=== PATIENT | male | born 1965 | race Caucasian/White ===

== ENCOUNTER → 2020-04-13 12:28 | Outpatient (CLI) | payer OTHER, SELFPAY ==
[2020-04-04 09:58] VITALS: BMI 33.7
--- NOTE | 2020-04-13 13:36 | SP.MBSS_ITS ---
Modified Barium Swallow - Patient Information Study Date: 04/13/20 Study Time: 13:00 Diagnosis: dysphagia, unspecified (R13.12) Referring Physician: Kwaku Mckinley MS CCC-GLASS SCIENCE ENGINEER Reason for Referral: painful and effortful swallowing Medical History: 02/21/2020: Patient was evaluated by ENT for pharyngeal dysphasia and sent to ENT for evaluation 03/04/2020: CT neck with contrast was performed. There is suspicious masslike enhancement along the left aspect of the base of tongue measuring 2.4 x 2 cm. There is a large amount of streak artifact from the patient's dental amalgam and this could be involving the left palatine tonsil as well. There is a large amount of accessory parotid tissue superficial to the masseter muscle but no parotid masses identified. There is a suspicious appearing solid 2 x 1.8 cm left level 2B level 3 junction lymph node. No other convincing adenopathy is identified. 10 pound weight loss. Difficulty 03/15/2020: Patient underwent triple endoscopy. Biopsy of the base of tongue demonstrated nonkeratinizing squamous cell carcinoma with p16 being diffusely and strongly positive. 03/20/2020: PET scan was performed. There is a 2.3 x 2.8 x 3.4 cm focus of intense activity noted in the left base of tongue and adjacent anterolateral left oropharyngeal region. There is a left level 2 lymph node measuring 0.7 x 1 cm with an SUV of 5.2 and an enlarged lymph node in the level 2B/3 region demonstrates an SUV of 14.8. No other adenopathy or evidence of distant metastasis is identified. 03/27/2020: Patient was seen by medical oncology and plan was to discuss the tumor board and formulate a plan between chemoradiation or potentially surgery and radiation with or without chemotherapy. 03/27/2020: Patient was discussed at multidisciplinary tumor board. Recommendation was for dual modality treatment in the form of chemotherapy and radiation. Given the extent of the primary lesion he was not felt to be good candidate for transoral resection. Current Diet Ordered: soft/thin Dentition: Natural Teeth Mental Status: WNL Respiratory Status: Oxygenating on Room Air - Study Findings Consistencies: Thin Liquid, [place] Thick Liquid, Pudding, Cookie - Penetration-Aspiration Scale Penetration-Aspiration Scale: OBJECTIVE ASSESSMENT OF SWALLOW FUNCTION (QUANTITATIVE ? PER TRIAL): PENETRATION / ASPIRATION SCALE (TORRES): 1 = does not enter airway 2 = enters airway/above vocal folds/ejected 3 = enters airway/above vocal folds/not ejected 4 = enters airway/contacts vocal folds/ejected 5 = enters airway/contacts vocal folds/not ejected 6 = enters airway/below vocal folds/ejected 7 = enters airway/below vocal folds/not ejected despite effort 8 = enters airway/below vocal folds/no effort - Penetration-Aspiration Scale Score Thin Liquid via teaspoon Result: 1= does not enter airway Thin Liquid via small single sip from cup Result: 1= does not enter airway Thin Liquid via large single sip from cup Result: 4= enters airway/contacts vocal folds/ejected Comment: scant amount Thin Liquid via sequential sips from cup Result: 1= does not enter airway [place] Thick Liquid via small single sip from cup Result: 1= does not enter airway [place] Thick Liquid via large single sip from cup Result: 1= does not enter airway Pudding Result: 1= does not enter airway Cookie Result: 1= does not enter airway Thin Liquid via sequential sips from straw Result: 2= enter airway/above vocal folds/ejected - Oral Phase Labial Seal: No Labial Escape Tongue Control During Bolus Hold: Cohesive bolus between tongue to palatal seal Bolus Preparation/Mastication: Timely and efficient chewing and mashing Bolus Transport/Lingual Motion: Brisk tongue motion Oral Residue: Trace residue lining oral structures - Pharyngeal Phase Initiation of Pharyngeal Swallow: Bolus head at posterior angle of ramus at first hyoid excursion Soft Palate Elevation: No bolus between soft palate and pharyngeal wall Laryngeal Elevation: Partial superior movement thyroid cart/partial apprx aryt- epig petiole Anterior Hyoid Excursion: Partial anterior movement Epiglottic Movement: Complete inversion Laryngeal Vestibule Closure at Height of Swallow: Incomplete; narrow column of air/contrast in laryngeal vestibule Pharyngeal Stripping Wave: Present - complete Pharyngoesophageal Segment Opening: Complete distension and complete duration; no obstruction of flow Tongue Base Retraction: Narrow column of contrast between tongue base & post. pharyngeal wall Pharyngeal Residue: Complete pharyngeal clearance - Diagnosis/Impression Diagnosis: mild oropharyngeal dysphagia (R13.12) Impression: The patient reports effortful and painful swallowing and has been following a soft diet on his own for several weeks. The patient describes effortful swallowing even with liquids although denies any coughing or choking on food/drink.The patient trialed thin liquid barium via large single sip from cup with scant penetration to the vocal cords which was quickly ejected. Patient also had scant penetration with thin liquids via sequential sips via straw also ejected. No other penetration or aspiration found at this date and time. The patient tolerated pudding and solid texture trials with increased effort in swallowing Radha Doone shortbread cookie. The patient able to describe in great detail types of textures that work best for him to help with the pain of sw allowing. It is recommended the patient continue with a mechanical soft texture (moist and minced)/thin liquid diet. The patient was encouraged to add sauce or gravy to food when able to help with dry/hard items. It is recommended that the patient follow up with a speech-language pathologist following radiation/chemotherapy treatment to assess diet tolerance and make changes to diet and recommended compensatory strategies as needed. - Recommendations Diet: Mechanical Soft Textures, Thin Liquids Compensatory Strategies: Small Bites, Small Sips, Slow Rate, Alternate bites/solids and sips/liquids, Sitting upright Recommend Repeat Modified Barium Swallow: TBD Need for Skilled Speech Therapy Services: Yes Recommended Referrals: ENT Consult Education Completed: 1. Described result of evaluation., 2. Pt understands evaluation & agrees with goals and treatment plan. - Status Active ST Patient: Active - Contact Information [facility] Speech Therapy:: Cindy Darling MA CCC-GLASS SCIENCE ENGINEER [email or web address] [phone]
== END ==
PROVIDERS: PCP Family Medicine
DX: C01 Malignant neoplasm of base of tongue (principal)
CPT/HCPCS: 74230; 92611

== ENCOUNTER 2020-05-30 12:29 | Inpatient (IN) | payer OTHER, SELFPAY ==
[2020-04-04 09:58] VITALS: BMI 33.7
[2020-05-22 08:32] VITALS: BMI 29.9
[2020-05-30] VITALS (15 sets, daily range): BP systolic 97–127; BP diastolic 63–76; PULSE 78–97; RESP 15–92; TEMP 37.2–38.6; O2SAT 95–98; BMI 30.7; BMI 30.5
--- NOTE | 2020-05-30 12:55 | ED.VISSUMM ---
- ER Visit Summary Date of Service: 05/30/20 Chief Complaint: [Fever] History of Present Illness: The patient is a 54 M [presents to the emergency department with complaint of a fever that was noted today. Patient was given IV fluids at the infusion center where he is being seen and treated for tongue cancer. While getting IV fluids he noted some chills and a temperature screen noted that he had an elevated temperature of 100.8. Patient currently being treated for tongue cancer with chemotherapy. Patient's last chemo was 2 weeks ago. Patient also receiving radiation therapy. Patient has a port in his right chest but he has had no issues with it. Patient has minimal cough which she chronically has related to his cancer and radiation therapy. He denies any COVID-19 exposures. He denies urinary symptoms. Patient has been noted to be neutropenic as he had blood work done this morning. Patient also history of rheumatoid arthritis and sleep apnea.] Physical Examination: [HEENT-PERRLA, EOMI. Cranial nerves II through XII grossly intact. TMs clear. Mucous membranes moist. No adenopathy. Cardiovascular-regular rate and rhythm without murmur or ectopy. Patient has a port in his right chest that is nontender with no evidence of erythema or or signs of infection. Lungs-clear to auscultation, chest wall stable without crepitus or subcu emphysema Abdomen-normoactive bowel sounds, soft, nontender, no rebound or rigidity, no peritoneal signs. Skin exam-no rashes noted. Extremities-intact ?4, normal range of motion, normal pulses, atraumatic] Test Results: [CBC with differential showed a white count of 0.5 with an ANC of 0.3. Chemistries unremarkable. Urinalysis normal. Lactate was normal at 0.5. COVID-19 test was negative. Chest x-ray showed nothing acute.] Emergency Department Course and Treatment: [Blood cultures have been ordered prior to arrival in the emergency department. Patient was started empirically on cefepime 2 g IV.] Treatment Plan: [Admit] Disposition: [Admit] Impression: Neutropenic fever-etiology uncertain [] This note was generated with [employer] dictation software. It may contain incorrect words, spelling, and punctuation that were not noted in review of the chart prior to signing ED Disposition - Plan for ED Patient: Referrals: Luis Alberto Boo MD [Primary Care Provider] -
--- NOTE | 2020-05-30 13:25 | RAD_ITS ---
STUDY: X-RAY CHEST REASON FOR EXAM: Male, 54 years old. Fever, low platelets TECHNIQUE: Single frontal view of the chest. COMPARISON: None. FINDINGS: Indwelling catheter tip is in the cavoatrial junction. Cardiac silhouette unremarkable. Pulmonary vascularity unremarkable. Aorta unremarkable. Minimal left costophrenic angle opacity. Upper abdomen unremarkable. Osseous structures intact. No pneumothorax. RAD/Chest 1 View (Portable) IMPRESSION: Minimal opacity at the left base may represent atelectasis and small effusion. Pneumonia should be excluded clinically. Electronically Signed: Dawit Edwards, at 16:16 EDT Tel , Service support ,
[2020-05-30] MEDS: 0.9% Normal Saline 1,000 ML 150 ML IV (13:28)
[2020-05-30 14:01] LABS: AST(SGOT) 8 U/L (15-37); Alanine Aminotransfer ALT/SGPT 18 U/L (16-61); Albumin, Serum 3.1 g/dL (3.2-5.0); Alkaline Phosphatase 47 U/L (45-117); Anion Gap 5 (5-15); BUN 17 mg/dL (7-18); BUN/Creat Ratio 21.7 RATIO (10-20); Calcium,Total 8.4 mg/dL (8.5-10.1); Chloride 107 mmol/L (98-107); Creatinine, Serum 0.78 mg/dL (0.70-1.30); EST Glomerular Filtration Rate 110 mL/min (>60); Est Glom Filt Rate - Afr Amer 133 mL/min (>60); Globulin 3.2 g/dL (2.2-4.2); Glucose 94 mg/dL (74-106); Potassium 4.2 mmol/L (3.5-5.1); Protein, Total 6.3 g/dL (6.4-8.2); Sodium Level 139 mmol/L (136-145)
[2020-05-30 14:06] LABS: Lactic Acid 0.5 mmol/L (0.4-1.9)
[2020-05-30 15:17] LABS: Bacteria 0 SEEN /hpf (None Seen); Mucous, Urine 0 SEEN /hpf (<or=2+); Red Blood Cells-Urine 0 SEEN /hpf (0-5); Squamous Epithelial Cells - UA 0 SEEN /hpf (0-5); White Blood Cells 0 SEEN /hpf (0-5)
[2020-05-30 15:19] LABS: Color, Urine Yellow (Yellow); Glucose, Dipstick Normal (Normal); Ketone-Dipstick Negative (Negative); Leukocyte Esterase-Dipstick Negative /ul (Negative); Nitrite-Dipstick Negative (Negative); Occult Blood-Urine Negative /ul (Negative); Protein-Dipstick Negative (Negative); Specific Gravity, Urine 1.015 (1.002-1.030); Urine Bilirubin Dipstick Negative (Negative); Urine Clarity Clear (Clear); Urine Urobilinogen Normal (Normal)
--- NOTE | 2020-05-30 16:24 | NURSING ---
CALLED [facility] JANE ABOUT PATIENT. FARRAH, BED COORDINATOR, TOOK INFO. SOMEONE WILL CALL BACK TO FOLLOW UP.
--- NOTE | 2020-05-30 16:35 | NURSING ---
DR NINO IN ER. PATIENT CONCERNED ABOUT [facility] DR NINO WAITING ON THEM TO CALL BACK BEFORE ADMITTING PATIENT
--- NOTE | 2020-05-30 16:54 | NURSING ---
CALLED [facility]YAH JANE, TALKED TO MONIQUE IN BED COODINATOR. PATIENT CAN BE ADMITTED HERE . T
[2020-05-30] MEDS: Acetaminophen 500 MG Tablet 1000 MG PO (16:55)
--- NOTE | 2020-05-30 16:57 | NURSING ---
[address] NEURTROPENIA ASHELFAH
--- NOTE | 2020-05-30 16:58 | PCM.HP.STD ---
Problem List (1) Febrile neutropenia Status: Acute (2) Depression Status: Chronic (3) Hypertension Status: Chronic (4) Tongue cancer Status: Chronic (5) Regional lymph node metastasis present Status: Chronic History of Present Illness Date of Admission: 05/30/20 Chief Complaint: Fever. The patient is a 54 year old M with past medical history as mentioned above presented to the emergency room because of fever. Today, patient came to the infusion center for IV fluids as he has been treated for tongue cancer and he is on PEG tube feedings and he was noted to have fever with chills. Reportedly, his temperature was 100.8 Fahrenheit at the infusion center which is started after IV fluid was started. Patient complained of fever, associated with mild chills and rigors, felt better after received IV fluids and he denied any other associated symptoms. He denied cough or sputum production. He reported chronic sore throat secondary to an cancer but nothing unusual. He denied abdominal pain, nausea or vomiting. He denied constipation or diarrhea. He denied urinary symptoms. He denied recent travel or sick contacts. He denied exposure to COVID-19. 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 He had a history of hypertension which has been under control with lisinopril. He has history of depression and he has been on Celexa and BuSpar. In the emergency department, patient had spikes of fever, other vital signs were stable. Routine blood work was remarkable for severe leukopenia, thrombocytopenia, anemia and absolute neutrophil count of 300. BMP was unremarkable as well as LFTs. Urinalysis revealed no evidence of acute infection. COVID-19 PCR came back negative. Chest x-ray revealed minimal left pleural effusion, no obvious infiltrate. He is being admitted for febrile neutropenia without obvious source of infection, thrombocytopenia and anemia. 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 Rheumatoid arthritis M06.9 Sleep apnea G47.30 HTN (hypertension) I10 Allergies tramadol Allergy (Intermediate, Verified 05/30/20 12:31) Hives Home Medications: Ambulatory Orders Medication Instructions Recorded Cholecalciferol (VIT D3) [Vitamin 1,000 unit PO DAILY 09/23/15 D] Citalopram [Celexa] 20 mg PO DAILY 09/23/15 Pantoprazole Sodium [Protonix] 20 mg PO BID 09/23/15 busPIRone [Buspar] 20 mg PO TID 09/23/15 Lisinopril [Zestril] 20 mg PO DAILY 04/04/20 Magic Mouth Wash 15 ml PO Q6H PRN PRN #300 ml 04/04/20 Modafinil [Provigil] 200 mg PO DAILY PRN PRN 04/04/20 Lidocaine/Prilocaine 1 applicatio TP DAILY PRN PRN 30 04/26/20 [Lidocaine-Prilocaine Cream] Days #1 tube Ondansetron [Ondansetron Odt] 8 mg PO Q8H PRN PRN 10 Days #30 05/10/20 tab.rapdis Oxycodone HCl 5 ml PO 4X/DAY PRN PRN #400 05/24/20 solution Fluconazole 200 mg PO DAILY 05/30/20 Gabapentin [Neurontin] 900 mg PO TID 05/30/20 Lactose-Reduced Food/Fiber 250 ml PO Q2H 05/30/20 [Isosource 1.5 Braden Liquid] Surgical History: Surgical History (Last Reviewed 05/30/20 @ 17:[address] Gilma Mason MD) H/O hernia repair Z98.890, Z87.19 GROIN X 2 Surgical History: herniorrhaphy Psychiatric History: Depression Lives: Spouse/ Significant Other Smoking Status: Never smoker Alcohol: None Drugs: None - *Family History Maternal Family History: Family History (Last Reviewed 05/30/20 @ 17:[address] Gilma Mason MD) Mother Diabetes Paternal Family History: Family History (Last Reviewed 05/30/20 @ 17:[address] Gilma Mason MD) Mother Diabetes History Items: No pertinent history Review of Systems Constitutional: Reports: Chills, Fever. Denies: Anorexia, Malaise, Weakness, Fatigue Eyes: Denies: Blurred vision, Double vision, Drainage, Redness HEENT: Denies: Difficulty Hearing, Dysphasia, Ear Pain, Eye Pain, Nasal Congestion Cardiovascular: Denies: Chest Pain, Chest Pressure, Edema, Heaviness, Light Headedness, Palpitations, Syncope Respiratory: Denies: Cough, Hemoptysis, Pleuritic Pain, Shortness of Breath, Sputum production, Wheezing Gastrointestinal: Denies: Abdominal Pain, Constipation, Diarrhea, Nausea, Vomiting Genitourinary: Denies: Dysuria, Frequency, Hematuria Musculoskeletal: Denies: Arm Pain, Back Pain, Foot Pain Skin: Denies: Dryness, Rash Neurological: Denies: Balance problems, Blurred vision, Double vision, Change in Speech, Slurred speech, Confusion, Headaches, Incoordination Psychiatric: Reports: Depression. Denies: Anxiety Endocrine: Denies: Change in Body Habitus, Polydipsia, Polyuria VTE Information - Inpt Only VTE Present on Admission: No VTE Mechan Device Prophylaxis: SCD's VTE Pharm Prophylaxis ordered?: No Patient Problems: Active and Suspected Problems (Last Reviewed 05/29/20 @ 08:41 by Kerri Hale RN) Febrile neutropenia (Acute) - Physical Exam Vitals/I&O's: Vital Signs Temp Pulse Resp BP Pulse Ox 101 F H 87 16 118/70 97 05/30/20 16:24 05/30/20 16:24 05/30/20 16:24 05/30/20 16:24 05/30/20 16:24 Oxygen Delivery Method Room Air Weight: 196 lb 3.382 oz Body Mass Index (BMI) 30.7 Intake and Output for Last 24 Hours 05/28/20 05/29/20 05/30/20 23:59 23:59 23:59 Intake Total 100 / 100 Balance 100 / 100 General: Alert, Oriented x3, Cooperative, No apparent distress HEENT: Atraumatic, PERRLA, EOMI, Normocephalic Oral: Moist Mucosa, No Gingival or Mucosal Lesions/ Ulcerations Neck: Supple, No JVD, Negative Carotid Bruits, Trachea Midline, Thyroid Normal Size and Texture Lungs: No rhonchi, No wheeze, Diminished, Rales, - - Decreased breath sounds at the left base with faint crackles. Cardiovascular: Regular rate, Regular Rhythm, Normal S1, Normal S2, PMI Normal Abdomen: Bowel Sounds Present, Soft, Non Tender, Non-Distended, No Hepato-splenomegaly, - - PEG tube in place. Extremities: No clubbing, No cyanosis, No edema Skin: No rashes, No breakdown Lymphatic: No Cervical, Supraclavicular, or Inguinal Adenopathy Neurological: Cranial nerves II-XII grossly intact, Motor Exam 5/5 strength throughout Psych/Mental Status: Normal Affect, Appropriate, Alert and oriented to time, place, person, mood and affect Laboratory Results 05/30/20 13:20: Sodium 139, Potassium 4.2, Chloride 107, Carbon Dioxide 27.0, Anion Gap 5, BUN 17, Creatinine 0.78, Estim Creat Clear Calc 102.40, Est GFR (MDRD) Af Amer 133, Est GFR (MDRD) Non-Af 110, BUN/Creatinine Ratio 21.7 H, Glucose 94, Calcium 8.4 L, Total Bilirubin 0.40, AST 8 L, ALT 18, Alkaline Phosphatase 47, Total Protein 6.3 L, Albumin 3.1 L, Globulin 3.2, Albumin/Globulin Ratio 1.0 05/30/20 13:20: Lactic Acid 0.5 05/30/20 13:25: COVID-19 (LEIGHA) Not Detected 05/30/20 14:58: Urine Color Yellow, Urine Clarity Clear, Urine pH 8.0, Ur Specific [place] 1.015, Urine Protein Negative, Urine Glucose (UA) Normal, Urine Ketones Negative, Urine Occult Blood Negative, Urine Nitrite Negative, Urine Bilirubin Negative, Urine Urobilinogen Normal, Ur Leukocyte Esterase Negative, Urine RBC 0 SEEN, Urine WBC 0 SEEN, Ur Squamous Epith Cells 0 SEEN, Urine Bacteria 0 SEEN, Urine Mucus 0 SEEN Clinical Impression(s) from Imaging Studies Chest X-Ray 05/30/20 13:25 IMPRESSION: Minimal opacity at the left base may represent atelectasis and small effusion. Pneumonia should be excluded clinically. Electronically Signed: Dawit Edwards, at 16:16 EDT Tel , Service support , Current Medications Sodium Chloride () 1,000 mls @ 150 mls/hr IV .Q6H40M [facility]EN Last Admin: 10/27/20 13:28 Dose: 150 mls/hr Documented by: Assessment/Plan All Active Problems (Last Reviewed 05/29/20 @ 08:41 by Kerri Hale RN) Febrile neutropenia (Acute) Mucositis due to antineoplastic therapy (Acute) This is a 54 years old male patient presented to the emergency room because of fever, found to have severe neutropenia and he is being admitted for febrile neutropenia without evidence of acute infection. #1 febrile neutropenia: Without obvious source of infection. Chest x-ray revealed minimal left pleural effusion. Patient denied any cough or sputum production. He does have crackles on the left base auscultation. UA reviewed, unremarkable. COVID-19 PCR was negative. Vital signs are stable, no evidence of sepsis or severe sepsis. Absolute neutrophil count is 300. Plan: Admit to [facility] floor, telemetry, IV fluids, Tylenol as needed, Zofran as needed, blood culture, start IV cefepime, neutropenic precautions, start subcu Granix daily, continue fluconazole that he has been on, will do CT scan chest without contrast to rule out pneumonia, repeat CBC and BMP tomorrow morning, PT OT evaluation and treatment. #2 pancytopenia: Secondary to chemotherapy. Patient is leukopenic, neutropenic and thrombocytopenic as well as anemic. Currently, no active bleeding. Platelet count is 35,000. Hemoglobin is 9.1 g/dL. Plan: Granix daily, repeat CBC tomorrow morning. 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 He follows up with Dr. Landers as outpatient. #4 hypertension: Blood pressure stable, continue lisinopril. #5 depression: Stable, continue Celexa and BuSpar. #6 DVT prophylaxis: SCDs, no chemical prophylaxis because of severe thrombocytopenia. This note was generated with [employer] dictation software. It may contain incorrect words, spelling, and punctuation that were not noted in checking the note before signing. Inpatient E&M: 76453 Init Hosp L3
--- NOTE | 2020-05-30 17:33 | CT_ITS ---
STUDY: CT CHEST WITHOUT CONTRAST REASON FOR EXAM: Male, 54 years old. Fever, left pleural effusion, neutropenia, tongue cancer, Port. RADIATION DOSAGE (If Supplied By Facility): CTDIvol = ( 17.40 ) mGy, DLP = ( 573.92 ) mGycm TECHNIQUE: Transaxial imaging was performed without the administration of intravenous contrast material. Individualized dose optimization techniques were used for this CT. COMPARISON: None. FINDINGS: There are bilateral lower lobe with trace or atelectasis. Small calcified granuloma in left lower lobe. There is no demonstrated pleural abnormality. Normal heart and pericardium. Normal mediastinum. Tiny calcified left hilar node. Normal unenhanced pulmonary arteries. Normal aorta arch and descending thoracic aorta. Thoracic spine demonstrates degenerative changes.. PEG tube noted with tip in stomach.. CT/Chest without Contrast IMPRESSION: Bibasilar atelectasis or infiltrates. Old granulomatous disease on the left. Electronically Signed: Chad Chun MD at 19:16 EDT , Service support ,
[2020-05-30 18:16] LABS: International Normalized Ratio 1.1; Prothrombin Time (Protime)PT. 13.2 SECONDS (11.7-14.9)
--- NOTE | 2020-05-30 18:19 | NURSING ---
NIYAH AMAYA, CALLED TO FOLLOW UP ON PATIENT. WANTED TO MAKE SURE HE WAS ADMITTED. HE WILL FOLLOWUP LATER
[2020-05-30] MEDS: TBO-FILGRASTIM 300 MCG/0.5 ML ML SC (18:33)
[2020-05-30] MEDS: busPIRone 5 MG Tablet 20 MG GT (21:41)
[2020-05-30] MEDS: Lansoprazole 15 MG Capsule.DR GT (21:41)
[2020-05-30] MEDS: 0.9% Normal Saline 1,000 ML 75 ML IV (21:49)
[2020-05-30] MEDS: oxyCODONE Soln 5 MG/0.25 ML PO.SYRINGE GT (23:45)
[2020-05-31] VITALS (11 sets, daily range): BP systolic 109–122; BP diastolic 68–74; PULSE 67–106; RESP 16–18; TEMP 36.6–37.2; O2SAT 93–96; BMI 30.5
[2020-05-31 00:20] LABS: Bedside Glucose 103 mg/dL (70-110)
[2020-05-31] MEDS: Acetaminophen 650 MG/20 ML UDC GT ×3 (01:34→16:14)
[2020-05-31 06:20] LABS: Absolute Lymphocyte Count 0.11 X10^3/uL (0.83-4.51); Absolute Neutrophil Count 0.4 X10^3/uL (2.0-7.7); Eosinophil# 0.01 X10^3/uL; Eosinophils% 1.4 % (0-5); Hemoglobin 9.3 g/dL (13.0-16.5); Lymphocyte # 0.11 X10^3/ul (4.0); Lymphocyte % 15.5 % (19-41); Mean Corp Hgb Conc 32.1 g/dL (32-36); Mean Corpuscular Hgb 29.8 pg (27.0-32.0); Mean Corpuscular Volume 92.9 fL (80-94); Monocyte# 0.14 X10^3/uL; Monocyte% 19.7 % (0-10); NRBC Flagged by Analyzer 0 % (0-5); Neutrophil # 0.44 X10^3/uL (2.7-7.7); POSITIVE COUNT YES; POSITIVE DIFFERENTIAL YES; POSITIVE MORPHOLOGY YES; RBC Distribution Width CV 14.9 % (11.6-14.6); RBC Distribution Width SD 46.6 fl (35.1-43.9); Red Blood Count 3.12 M/mm3 (4.6-6.2)
[2020-05-31 06:26] LABS: White Blood Count 0.7 K/mm3 (4.4-11.0)
[2020-05-31 06:27] LABS: Differential Indicated SCAN CRITERIA MET
[2020-05-31 06:28] LABS: Platelet Count 32 K/mm3 (150-450)
[2020-05-31] MEDS: busPIRone 5 MG Tablet 20 MG GT ×3 (06:31→21:09)
[2020-05-31] MEDS: Jevity 1.5. 1,000 ML Bottle 250 ML GT ×3 (06:31→13:37)
[2020-05-31] MEDS: oxyCODONE Soln 5 MG/0.25 ML PO.SYRINGE GT ×2 (06:32→20:10)
[2020-05-31 06:43] LABS: Anion Gap 5 (5-15); BUN 14 mg/dL (7-18); BUN/Creat Ratio 18.4 RATIO (10-20); Calcium,Total 8.4 mg/dL (8.5-10.1); Chloride 105 mmol/L (98-107); Creatinine, Serum 0.76 mg/dL (0.70-1.30); EST Glomerular Filtration Rate 114 mL/min (>60); Est Glom Filt Rate - Afr Amer 138 mL/min (>60); Estimated Creatinine Clearance 105.09 ml/min; Glucose 88 mg/dL (74-106); Sodium Level 138 mmol/L (136-145)
[2020-05-31 06:44] LABS: Differential Comment SCANNED
[2020-05-31 06:47] LABS: Platelet Estimate MKD DEC (ADEQ)
--- NOTE | 2020-05-31 07:05 | PCM.PN.HOSP ---
Patient Problems: Active and Suspected Problems (Last Reviewed 05/29/20 @ 08:41 by Kerri Hale RN) Febrile neutropenia (Acute) Reason for Visit: Follow-up on febrile neutropenia Subjective: Patient was seen and examined. He denied any fever or chills or SOB. He complains of abdominal discomfort around his PEG tube. There is no redness but increased exudates underneath the PEG tube stump. Objective: Physical exam: General: Alert, Oriented x3, Cooperative, No apparent distress HEENT: Atraumatic, PERRLA, EOMI, Normocephalic Oral: Moist Mucosa, No Gingival or Mucosal Lesions/ Ulcerations Neck: Supple, No JVD, Negative Carotid Bruits, Trachea Midline, Thyroid Normal Size and Texture Lungs: CTA Cardiovascular: Regular rate, Regular Rhythm, Normal S1, Normal S2, PMI Normal Abdomen: Bowel Sounds Present, Soft, Non Tender, Non-Distended, No Hepato-splenomegaly, - - PEG tube in place. Extremities: No edema Skin: No rashes, No breakdown Lymphatic: No Cervical, Supraclavicular, or Inguinal Adenopathy Neurological: Cranial nerves II-XII grossly intact, Motor Exam 5/5 strength throughout Psych/Mental Status: Normal Affect, Appropriate, Alert and oriented to time, place, person, mood and affect Vitals/I&O's: Vital Signs Temp Pulse Resp BP Pulse Ox 98.9 F 67 18 127/70 H 97 05/30/20 23:33 05/31/20 04:13 05/30/20 23:33 05/30/20 23:33 05/30/20 23:33 Oxygen Delivery Method Room Air Weight: 88.541 kg Body Mass Index (BMI) 30.5 Intake and Output for Last 24 Hours 05/29/20 05/30/20 05/31/20 23:59 23:59 23:59 Intake Total 1255 / 1255 778.75 / 778.75 Balance 1255 / 1255 778.75 / 778.75 Laboratory Results 05/30/20 13:20: Sodium 139, Potassium 4.2, Chloride 107, Carbon Dioxide 27.0, Anion Gap 5, BUN 17, Creatinine 0.78, Estim Creat Clear Calc 102.40, Est GFR (MDRD) Af Amer 133, Est GFR (MDRD) Non-Af 110, BUN/Creatinine Ratio 21.7 H, Glucose 94, Calcium 8.4 L, Total Bilirubin 0.40, AST 8 L, ALT 18, Alkaline Phosphatase 47, Total Protein 6.3 L, Albumin 3.1 L, Globulin 3.2, Albumin/Globulin Ratio 1.0 05/30/20 13:20: Lactic Acid 0.5 05/30/20 13:25: COVID-19 (LEIGHA) Not Detected 05/30/20 14:58: Urine Color Yellow, Urine Clarity Clear, Urine pH 8.0, Ur Specific [place] 1.015, Urine Protein Negative, Urine Glucose (UA) Normal, Urine Ketones Negative, Urine Occult Blood Negative, Urine Nitrite Negative, Urine Bilirubin Negative, Urine Urobilinogen Normal, Ur Leukocyte Esterase Negative, Urine RBC 0 SEEN, Urine WBC 0 SEEN, Ur Squamous Epith Cells 0 SEEN, Urine Bacteria 0 SEEN, Urine Mucus 0 SEEN 05/30/20 17:56: PT 13.2, INR 1.1 05/30/20 23:37: POC Glucose 103 05/31/20 06:00: WBC 0.7 L*, RBC 3.12 L, Hgb 9.3 L, Hct 29.0 L, MCV 92.9, MCH 29.8, MCHC 32.1, RDW Std Deviation 46.6 H, RDW Coeff of Steve 14.9 H, Plt Count 32 L*, MPV 10.0, Immature Gran % (Auto) 1.400 H, Neut % (Auto) 62.0, Lymph % (Auto) 15.5 L, [place] % (Auto) 19.7 H, Eos % (Auto) 1.4, Baso % (Auto) 0.0, Absolute Neuts (auto) 0.4 L, Absolute Lymphs (auto) 0.11 L, Nucleated RBC % 0, Differential Comment SCANNED, Diff Path Review December foll, Platelet Estimate MKD 05/31/20 06:00: Sodium 138, Potassium 4.0, Chloride 105, Carbon Dioxide 28.0, Anion Gap 5, BUN 14, Creatinine 0.76, Estim Creat Clear Calc 105.09, Est GFR (MDRD) Af Amer 138, Est GFR (MDRD) Non-Af 114, BUN/Creatinine Ratio 18.4, Glucose 88, Calcium 8.4 L Current Medications Acetaminophen (Acetaminophen 650 Mg/20 Ml Udc) 650 mg GT Q6H PRN PRN PRN Reason: Pain Score 1-10/Temp > 100.7 F Last Admin: 05/31/20 01:34 Dose: 650 mg Documented by: Buspirone HCl (Buspirone 5 Mg Tablet) 20 mg GT TID [facility] Last Admin: 05/31/20 06:31 Dose: 20 mg Documented by: Citalopram Hydrobromide (Citalopram 20 Mg Tablet) 20 mg GT DAILY [facility] Enteral Nutritional Formula (Jevity 1.5. 1,000 Ml Bottle) 250 ml GT 0700,0900,1100,1300 [facility] Last Admin: 05/31/20 06:31 Dose: 250 ml Documented by: Enteral Nutritional Formula (Jevity 1.5. 1,000 Ml Bottle) 250 ml GT 1500,1700,1900 [facility] Fluconazole (Fluconazole 100 Mg Tablet) 200 mg PO DAILY [facility] Gabapentin (Gabapentin 300 Mg Capsule) 900 mg GT TIDCM [facility] Heparin Sodium (Beef Lung) (Heparin Pf Lock 10 Units/Ml 50 Units/5 Ml Syringe) 50 units IV UD PRN PRN Reason: Port-a-Cath (VAD)Heparin Flush Sodium Chloride () 1,000 mls @ 75 mls/hr IV .[id number] [facility] Last Infusion: 05/31/20 06:54 Dose: 75 mls/hr Documented by: Cefepime HCl 2 gm/ Sodium (Chloride) 100 mls @ 200 mls/hr IV Q8 [facility] Last Infusion: 05/31/20 06:54 Dose: Infused Documented by: Lansoprazole (Lansoprazole 15 Mg Capsule.Dr) 15 mg GT BID [facility] Last Admin: 05/30/20 21:41 Dose: 15 mg Documented by: Lidocaine/Diphenhydr/Alum/Mg/Simeth (Bmx Liquid 180 Ml) 15 ml PO ACHS PRN PRN Reason: MOUTH PAIN Lisinopril (Lisinopril 20 Mg Tablet) 20 mg GT DAILY [facility] Ondansetron HCl (Ondansetron 4 Mg/2 Ml Vial) 4 mg IV Q8H PRN PRN PRN Reason: NAUSEA/VOMITING Oxycodone HCl (Oxycodone Soln 5 Mg/0.25 Ml Po.Syringe) 5 - 10 mg GT Q4H PRN PRN Reason: pain Last Admin: 05/31/20 06:32 Dose: 10 mg Documented by: Senna/Docusate Sodium (Senna/Docusate Sodium 1 Tablet) 2 tablet GT BID PRN PRN PRN Reason: Constipation Sodium Chloride (0.9% Saline Lock 10 Ml Syringe) 10 - 40 ml IV UD PRN PRN Reason: Port-a-Cath (VAD) Flush Sodium Chloride (0.9 % Nacl (Sterile) Posiflush 10 Ml) 10 - 40 ml IV UD PRN PRN Reason: Port access or dressing change Tbo-Filgrastim (Tbo-Filgrastim 300 Mcg/0.5 Ml Ml) 300 mcg SC DAILY [facility] Last Admin: 05/30/20 18:33 Dose: 300 mcg Documented by: Zolpidem Tartrate (Zolpidem Tartrate 5 Mg Tablet) 5 mg GT QHS PRN PRN PRN Reason: INSOMNIA STROKE Vital Signs/Narrative: Vital Signs Pulse 05/31/20 04:13 67 Medical Necessity - Tobacco Use Smoking Status: Never smoker Tobacco Use: Non-smoker Assessment/Plan All Active Problems (Last Reviewed 05/29/20 @ 08:41 by Kerri Hale RN) Febrile neutropenia (Acute) Mucositis due to antineoplastic therapy (Acute) 1. Acute febrile neutropenia, no clear source of infection. Urinalysis is unremarkable. CXR showed atelectasis. This was confirmed on Chest CT. WBC count is 0.7, increased from 0.5. Absolute neutrophil count is 400, increased from 300. Continue on cefepime IV and Granix 480 mg daily aiming for absolute neutrophil count more than 1000 Continue to trend CBCD. Continue on patient's old fluconazole 2. Pancytopenia/thrombocytopenia, acute, likely secondary to chemotherapy Pancytopenia has been, comparable to what it has in the last few days. We will continue to trend. 3. Squamous cell carcinoma of the tongue, status post radiation and chemotherapy with chronic dysphagia Continue on tube feeds via PEG tube 4. Anxiety/depression, continue on BuSpar and citalopram 5. Hypertension, controlled, continue lisinopril 6. DVT prophylaxis?SCDs and early ambulation Inpatient E&M: 92885 [facility] Hosp L3
[2020-05-31] MEDS: Citalopram 20 MG Tablet GT (08:38)
[2020-05-31] MEDS: Gabapentin 300 MG Capsule 900 MG GT ×3 (08:38→17:58)
[2020-05-31] MEDS: Lisinopril 20 MG Tablet GT (08:39)
[2020-05-31] MEDS: Lansoprazole 15 MG Capsule.DR GT ×2 (08:39→21:09)
[2020-05-31] MEDS: BMX LIQUID 180 ML 15 ML PO ×2 (08:47→21:11)
[2020-05-31] MEDS: Ondansetron 4 MG/2 ML Vial IV (09:06)
[2020-05-31] MEDS: Fluconazole 100 MG Tablet 200 MG GT (11:04)
[2020-05-31] MEDS: TBO-FILGRASTIM 300 MCG/0.5 ML ML SC (11:17)
--- NOTE | 2020-05-31 12:40 | CASEMGMT ---
RN CM Face to Face with patient for initial transition planning/care coordination assessment. RN CM introduced self and role at [facility]. Patient lying in bed, alert and oriented. Patient willing to participate in assessment and is able to answer all questions appropriately. Care providers, pharmacy, and demographics verified. Patient wishes to discharge home, denies need for home health at this time. Patient states he has no further needs or concerns at this time. CM to follow for discharge planning needs that may arise. PCP: Rajeev Specialists: Leesa, oncology; Arlen radiology oncology; Jamison PCP at [facility] Preferred Pharmacy: [facility] [place]: [place] Pres[place] Living Will/HPOA: none LNOK: Living Arrangements: Patient lives with in a 2 story home. Patient is able to ambulate stairs. Patient is independent at home. Transportation: self, DME/HHC: Patient states he has cpap. Patient denies previous HHC. Disposition Plan: Patient to discharge home with family support and follow-up plans in place. Yas MEZA, RN, CM
[2020-05-31 13:32] LABS: Pathologist Review Reviewed
--- NOTE | 2020-05-31 17:22 | PCM.NTREPORT ---
Nutrition Therapy Report - History Nutrition Services has been consulted to:: Manage enteral nutrition Current diet / nutrition support order:: Cardiac diet. Jevity 1.5 250 mL bolus feed via PEG 7 x per day providing 2,625 calories, 112 grams protein - Anthropometric Measurements Height:: 5 ft 7 in Weight:: 88.5 kg Body Mass Index (BMI):: 30.5 - Relevant Labs Relevant Labs:: WBC 0.7 K/mm3 (4.4-11.0) L* 05/31/20 06:00 RBC 3.12 M/mm3 (4.6-6.2) L 05/31/20 06:00 Hgb 9.3 g/dL (13.0-16.5) L 05/31/20 06:00 Hct 29.0 % (40-54) L 05/31/20 06:00 RDW Std Deviation 46.6 fl (35.1-43.9) H 05/31/20 06:00 RDW Coeff of Steve 14.9 % (11.6-14.6) H 05/31/20 06:00 Plt Count 32 K/mm3 (150-450) L* 05/31/20 06:00 Immature Gran % (Auto) 1.400 % (0.0-0.9) H 05/31/20 06:00 Lymph % (Auto) 15.5 % (19-41) L 05/31/20 06:00 [place] % (Auto) 19.7 % (0-10) H 05/31/20 06:00 Absolute Neuts (auto) 0.4 X10^3/uL (2.0-7.7) L 05/31/20 06:00 Absolute Lymphs (auto) 0.11 X10^3/uL (0.83-4.51) L 05/31/20 06:00 BUN/Creatinine Ratio 21.7 RATIO (10-20) H 05/30/20 13:20 Calcium 8.4 mg/dL (8.5-10.1) L 05/31/20 06:00 AST 8 U/L (15-37) L 05/30/20 13:20 Total Protein 6.3 g/dL (6.4-8.2) L 05/30/20 13:20 Albumin 3.1 g/dL (3.2-5.0) L 05/30/20 13:20 - Assessment Food / Nutrition-Related History:: Pt following / [facility] outpatient dietitian for TF. Recieved Formula & PEG supplies 05/16, began administering TF via PEG. 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 Pt administers H2O flush before first feed and 2-3 flushes after each feeding; pt unsure exact amount mL H2O flush he provides, provides full syringe. Pt reports first feed is around 0700 w/ 2 hours in between every feed. Pt noted UBW~ 220# w/ fluctuating wt, CBW 195.2#; wt hx per EMR 05/08/20 199.1#, 05/17/20 195.8#-- pt notes monitoring wt daily in a.m.. RN held pt bolus TF at 0905 RSV 190 ml, resumed TF 1100. Pt tolerating TF (0-190 RSV), abdomen soft/tender/ +BS, normoactive- last BM 05/29 normal. Per RN notes pt w/ nausea at this time no emesis. Pt did not order B or L this day. - Nutrition Diagnosis Problem / Etiology / Signs & Symptoms (PES):: Increased nutrient needs r/t hypermetabolic state, undergoing chemotherapy, radiation and inadequate oral intake as evidenced by pt receiving enternal nutrition via PEG as pt unable to meet estimated nutrition requirement via PO diet, currently refusing PO meals. Evidence of Malnutrition Exists:: No - Nutrition Intervention Nutrition Prescription:: Estimated nutrient needs: 1707-4115 calories, 95-105 grams protein. - Food / Nutrient Delivery Interventions Nutrition support ordered as / adjusted to:: Rec 230 ml Jevity 1.5 bolus feed via PEG 7 times per day with 85 mL flush before and after each feed to provide 2415 calories, 103 grams protein, and 2414 mL total fluid per day. TF alone will meet 100% of pt estimated nutrition needs. Will provide pt Regular diet for comfort feeds as tolerated. Nutrition education provided?: No - MNT Monitoring Further MNT monitoring and evaluation required?: Yes MNT Follow-up in:: 3-5 days
--- NOTE | 2020-05-31 17:52 | NS ---
LOREN reviewed purchasing internship Diana Polanco nutrition assessment. Agree with care provided. Ruba Sahu RDN, LD
[2020-05-31] MEDS: Jevity 1.5. 1,000 ML Bottle 230 ML GT (18:04)
[2020-05-31] MEDS: 0.9% Saline Lock 10 ML Syringe IV (21:11)
[2020-06-01] VITALS (12 sets, daily range): BP systolic 111–114; BP diastolic 64–70; PULSE 73–96; RESP 16–18; TEMP 36.8–37.3; O2SAT 92–97
[2020-06-01] MEDS: busPIRone 5 MG Tablet 20 MG GT ×3 (05:43→20:35)
[2020-06-01] MEDS: 0.9% Saline Lock 10 ML Syringe IV ×3 (05:45→20:35)
[2020-06-01] MEDS: Acetaminophen 650 MG/20 ML UDC GT ×2 (05:49→14:25)
[2020-06-01 06:31] LABS: Absolute Lymphocyte Count 0.11 X10^3/uL (0.83-4.51); Absolute Neutrophil Count 0.3 X10^3/uL (2.0-7.7); Basophil# 0.01 X10^3/uL; Eosinophil# 0.01 X10^3/uL; Hematocrit 29.9 % (40-54); Hemoglobin 9.8 g/dL (13.0-16.5); Lymphocyte # 0.11 X10^3/ul (4.0); Lymphocyte % 11.5 % (19-41); Mean Corp Hgb Conc 32.8 g/dL (32-36); Mean Corpuscular Hgb 30.1 pg (27.0-32.0); Mean Corpuscular Volume 91.7 fL (80-94); Mean Platelet Vol. 9.3 fl (6.2-12.0); Monocyte% 31.3 % (0-10); NRBC Flagged by Analyzer 0 % (0-5); Neutrophil # 0.32 X10^3/uL (2.7-7.7); Neutrophil % 33.3 % (47-70); POSITIVE COUNT YES; POSITIVE DIFFERENTIAL YES; POSITIVE MORPHOLOGY YES; RBC Distribution Width SD 45.5 fl (35.1-43.9); Red Blood Count 3.26 M/mm3 (4.6-6.2)
[2020-06-01 06:38] LABS: Platelet Count 44 K/mm3 (150-450)
[2020-06-01 06:39] LABS: Differential Indicated SCAN CRITERIA MET
[2020-06-01 06:56] LABS: ALB/GLOB Ratio 0.8 RATIO (0.9-2.4); AST(SGOT) 7 U/L (15-37); Alanine Aminotransfer ALT/SGPT 16 U/L (16-61); Alkaline Phosphatase 48 U/L (45-117); Anion Gap 4 (5-15); BUN 13 mg/dL (7-18); BUN/Creat Ratio 15.1 RATIO (10-20); Calcium,Total 8.7 mg/dL (8.5-10.1); Chloride 106 mmol/L (98-107); Creatinine, Serum 0.86 mg/dL (0.70-1.30); EST Glomerular Filtration Rate 98 mL/min (>60); Est Glom Filt Rate - Afr Amer 119 mL/min (>60); Estimated Creatinine Clearance 92.87 ml/min; Globulin 3.6 g/dL (2.2-4.2); Glucose 100 mg/dL (74-106); Potassium 3.9 mmol/L (3.5-5.1); Protein, Total 6.6 g/dL (6.4-8.2); Sodium Level 137 mmol/L (136-145)
[2020-06-01 07:10] LABS: Differential Comment SCANNED; Platelet Estimate MKD DEC (ADEQ)
[2020-06-01 07:12] LABS: Macrocytosis RARE
--- NOTE | 2020-06-01 07:34 | PCM.PN.HOSP ---
Patient Problems: Active and Suspected Problems (Last Reviewed 05/29/20 @ 08:41 by Kerri Hale RN) Febrile neutropenia (Acute) Reason for Visit: Follow-up on febrile neutropenia Subjective: Patient was seen and examined. He denied any new complains. Denies fever or chills. Objective: Physical exam: General: Alert, Oriented x3, Cooperative, No apparent distress HEENT: Atraumatic, PERRLA, EOMI, Normocephalic Oral: Moist Mucosa, No Gingival or Mucosal Lesions/ Ulcerations Neck: Supple, No JVD, Negative Carotid Bruits, Trachea Midline, Thyroid Normal Size and Texture Lungs: CTA Cardiovascular: Regular rate, Regular Rhythm, Normal S1, Normal S2, PMI Normal Abdomen: Bowel Sounds Present, Soft, Non Tender, Non-Distended, No Hepato-splenomegaly, - - PEG tube in place. Extremities: No edema Skin: No rashes, No breakdown Lymphatic: No Cervical, Supraclavicular, or Inguinal Adenopathy Neurological: Cranial nerves II-XII grossly intact, Motor Exam 5/5 strength throughout Psych/Mental Status: Normal Affect, Appropriate, Alert and oriented to time, place, person, mood and affect Vitals/I&O's: Vital Signs Temp Pulse Resp BP Pulse Ox 99.1 F 91 18 111/69 96 06/01/20 02:30 06/01/20 04:24 06/01/20 02:30 06/01/20 02:30 06/01/20 02:30 Oxygen Delivery Method Room Air Weight: 88.5 kg Body Mass Index (BMI) 30.5 Intake and Output for Last 24 Hours 05/30/20 05/31/20 06/01/20 23:59 23:59 23:59 Intake Total 1255 / 1255 4502.50 / 4502.50 100 / 100 Balance 1255 / 1255 4502.50 / 4502.50 100 / 100 Laboratory Results 05/31/20 06:00: Diff Path Review Reviewed 06/01/20 06:10: WBC 1.0 L*, RBC 3.26 L, Hgb 9.8 L, Hct 29.9 L, MCV 91.7, MCH 30.1, MCHC 32.8, RDW Std Deviation 45.5 H, RDW Coeff of Steve 15.0 H, Plt Count 44 L*, MPV 9.3, Immature Gran % (Auto) 21.900 H, Neut % (Auto) 33.3 L, Lymph % (Auto) 11.5 L, [place] % (Auto) 31.3 H, Eos % (Auto) 1.0, Baso % (Auto) 1.0, Absolute Neuts (auto) 0.3 L, Absolute Lymphs (auto) 0.11 L, Nucleated RBC % 0, Differential Comment SCANNED, Diff Path Review December foll, Platelet Estimate MKD DEC, Macrocytosis RARE 06/01/20 06:10: Sodium 137, Potassium 3.9, Chloride 106, Carbon Dioxide 27.0, Anion Gap 4 L, BUN 13, Creatinine 0.86, Estim Creat Clear Calc 92.87, Est GFR (MDRD) Af Amer 119, Est GFR (MDRD) Non-Af 98, BUN/Creatinine Ratio 15.1, Glucose 100, Calcium 8.7, Total Bilirubin 0.60, AST 7 L, ALT 16, Alkaline Phosphatase 48, Total Protein 6.6, Albumin 3.0 L, Globulin 3.6, Albumin/Globulin Ratio 0.8 L Current Medications Acetaminophen (Acetaminophen 650 Mg/20 Ml Udc) 650 mg GT Q6H PRN PRN PRN Reason: Pain Score 1-10/Temp > 100.7 F Last Admin: 06/01/20 05:49 Dose: 650 mg Documented by: Buspirone HCl (Buspirone 5 Mg Tablet) 20 mg GT TID [facility] Last Admin: 06/01/20 05:43 Dose: 20 mg Documented by: Citalopram Hydrobromide (Citalopram 20 Mg Tablet) 20 mg GT DAILY [facility] Last Admin: 05/31/20 08:38 Dose: 20 mg Documented by: Enteral Nutritional Formula (Jevity 1.5. 1,000 Ml Bottle) 230 ml GT 1500,1700,1900 [facility] Last Admin: 05/31/20 18:04 Dose: 120 ml Documented by: Enteral Nutritional Formula (Jevity 1.5. 1,000 Ml Bottle) 230 ml GT 0700,0900,1100,1300 [facility] Fluconazole (Fluconazole 100 Mg Tablet) 200 mg GT DAILY [facility] Last Admin: 05/31/20 11:04 Dose: 200 mg Documented by: Gabapentin (Gabapentin 300 Mg Capsule) 900 mg GT TIDCM [facility] Last Admin: 05/31/20 17:58 Dose: 900 mg Documented by: Heparin Sodium (Beef Lung) (Heparin Pf Lock 10 Units/Ml 50 Units/5 Ml Syringe) 50 units IV UD PRN PRN Reason: Port-a-Cath (VAD)Heparin Flush Cefepime HCl 2 gm/ Sodium (Chloride) 100 mls @ 200 mls/hr IV Q8 [facility] Last Infusion: 06/01/20 06:12 Dose: Infused Documented by: Lansoprazole (Lansoprazole 15 Mg Capsule.Dr) 15 mg GT BID [facility] Last Admin: 05/31/20 21:09 Dose: 15 mg Documented by: Lidocaine/Diphenhydr/Alum/Mg/Simeth (Bmx Liquid 180 Ml) 15 ml PO ACHS PRN PRN Reason: MOUTH PAIN Last Admin: 05/31/20 21:11 Dose: 15 ml Documented by: Lisinopril (Lisinopril 20 Mg Tablet) 20 mg GT DAILY [facility] Last Admin: 05/31/20 08:39 Dose: 20 mg Documented by: Ondansetron HCl (Ondansetron 4 Mg/2 Ml Vial) 4 mg IV Q8H PRN PRN PRN Reason: NAUSEA/VOMITING Last Admin: 05/31/20 09:06 Dose: 4 mg Documented by: Oxycodone HCl (Oxycodone Soln 5 Mg/0.25 Ml Po.Syringe) 5 - 10 mg GT Q4H PRN PRN Reason: pain Last Admin: 05/31/20 20:10 Dose: 10 mg Documented by: Senna/Docusate Sodium (Senna/Docusate Sodium 1 Tablet) 2 tablet GT BID PRN PRN PRN Reason: Constipation Sodium Chloride (0.9% Saline Lock 10 Ml Syringe) 10 - 40 ml IV UD PRN PRN Reason: Port-a-Cath (VAD) Flush Last Admin: 06/01/20 05:45 Dose: 10 ml Documented by: Sodium Chloride (0.9 % Nacl (Sterile) Posiflush 10 Ml) 10 - 40 ml IV UD PRN PRN Reason: Port access or dressing change Tbo-Filgrastim (Tbo-Filgrastim 480 Mcg/0.8 Ml Ml) 480 mcg SC DAILY [facility] Zolpidem Tartrate (Zolpidem Tartrate 5 Mg Tablet) 5 mg GT QHS PRN PRN PRN Reason: INSOMNIA STROKE Vital Signs/Narrative: Vital Signs Pulse 06/01/20 04:24 91 Medical Necessity - Tobacco Use Smoking Status: Never smoker Tobacco Use: Non-smoker Assessment/Plan All Active Problems (Last Reviewed 05/29/20 @ 08:41 by Kerri Hale RN) Febrile neutropenia (Acute) Mucositis due to antineoplastic therapy (Acute) 1. Acute febrile neutropenia, no clear source of infection. Urinalysis is unremarkable. CXR showed atelectasis. This was confirmed on Chest CT. WBC count is 1.0. Absolute neutrophil count is 300 Continue on cefepime IV and Granix 480 mg daily aiming for absolute neutrophil count more than 1000 Continue to trend CBCD. Continue on patient's old fluconazole 2. Pancytopenia/thrombocytopenia, acute, likely secondary to chemotherapy Pancytopenia has been, comparable to what it has in the last few days. We will continue to trend. 3. Squamous cell carcinoma of the tongue, status post radiation and chemotherapy with chronic dysphagia Continue on tube feeds via PEG tube 4. Anxiety/depression, continue on BuSpar and citalopram 5. Hypertension, controlled, continue lisinopril 6. DVT prophylaxis?SCDs and early ambulation Inpatient E&M: 42608 Subs Hosp L2
[2020-06-01] MEDS: Jevity 1.5. 1,000 ML Bottle 230 ML GT ×4 (07:45→20:35)
[2020-06-01] MEDS: Citalopram 20 MG Tablet GT (08:02)
[2020-06-01] MEDS: Gabapentin 300 MG Capsule 900 MG GT ×3 (08:02→16:12)
[2020-06-01] MEDS: Lisinopril 20 MG Tablet GT (08:03)
[2020-06-01] MEDS: Fluconazole 100 MG Tablet 200 MG GT (10:03)
[2020-06-01] MEDS: Lansoprazole 15 MG Capsule.DR GT ×2 (10:04→20:35)
[2020-06-01] MEDS: TBO-FILGRASTIM 480 MCG/0.8 ML ML SC (10:15)
[2020-06-01 12:34] LABS: Pathologist Review Reviewed
[2020-06-01] MEDS: BMX LIQUID 180 ML 15 ML PO (16:15)
[2020-06-01] MEDS: oxyCODONE Soln 5 MG/0.25 ML PO.SYRINGE GT (20:36)
[2020-06-02] VITALS (11 sets, daily range): BP systolic 106–115; BP diastolic 57–68; PULSE 75–94; RESP 16–18; TEMP 36.2–37.2; O2SAT 92–97
[2020-06-02] MEDS: 0.9% Saline Lock 10 ML Syringe IV (06:27)
[2020-06-02] MEDS: Ondansetron 4 MG/2 ML Vial IV (06:28)
[2020-06-02] MEDS: busPIRone 5 MG Tablet 20 MG GT ×3 (06:31→21:33)
[2020-06-02] MEDS: Acetaminophen 650 MG/20 ML UDC GT (06:32)
[2020-06-02] MEDS: Jevity 1.5. 1,000 ML Bottle 230 ML GT ×6 (06:32→19:44)
[2020-06-02 07:05] LABS: Hematocrit 29.1 % (40-54); Hemoglobin 9.6 g/dL (13.0-16.5); Mean Corpuscular Hgb 30.4 pg (27.0-32.0); Mean Corpuscular Volume 92.1 fL (80-94); Mean Platelet Vol. 10.2 fl (6.2-12.0); POSITIVE COUNT YES; POSITIVE DIFFERENTIAL YES; POSITIVE MORPHOLOGY YES; Platelet Count 56 K/mm3 (150-450); RBC Distribution Width CV 15.2 % (11.6-14.6); RBC Distribution Width SD 47.6 fl (35.1-43.9); Red Blood Count 3.16 M/mm3 (4.6-6.2)
[2020-06-02 07:31] LABS: ALB/GLOB Ratio 0.9 RATIO (0.9-2.4); AST(SGOT) 8 U/L (15-37); Alanine Aminotransfer ALT/SGPT 15 U/L (16-61); Alkaline Phosphatase 48 U/L (45-117); Anion Gap 6 (5-15); BUN 15 mg/dL (7-18); BUN/Creat Ratio 20.4 RATIO (10-20); Calcium,Total 8.6 mg/dL (8.5-10.1); Chloride 104 mmol/L (98-107); Creatinine, Serum 0.74 mg/dL (0.70-1.30); EST Glomerular Filtration Rate 118 mL/min (>60); Est Glom Filt Rate - Afr Amer 143 mL/min (>60); Estimated Creatinine Clearance 107.93 ml/min; Globulin 3.4 g/dL (2.2-4.2); Glucose 101 mg/dL (74-106); Potassium 3.9 mmol/L (3.5-5.1); Protein, Total 6.4 g/dL (6.4-8.2); Sodium Level 138 mmol/L (136-145)
[2020-06-02 07:51] LABS: Differential Indicated MANUAL DIFF; White Blood Count 1.3 K/mm3 (4.4-11.0)
[2020-06-02 08:06] LABS: Eosinophil 2 % (0-5); Lymphocyte 10 % (19-41); Metamyelocyte 3 % (0-1); Monocyte 33 % (0-10); Myelocyte 2 (0-0); Neutrophil-Band 21 % (0-5); Neutrophil-Segmented 29 % (47-70); Nucleated Red Bld Cells,Manual 1 % (0-5); Total Cells Counted 100 (MANUAL DIFF)
[2020-06-02 08:08] LABS: Platelet Estimate MOD DEC (ADEQ); Red Cell Morphology NORM C+C NORMAL (NORM C&C)
[2020-06-02 08:10] LABS: Absolute Lymphocyte Count 0.13 X10^3/uL (0.83-4.51); Absolute Neutrophil Count 0.7 X10^3/uL (2.0-7.7)
[2020-06-02] MEDS: Gabapentin 300 MG Capsule 900 MG GT ×3 (08:57→17:19)
[2020-06-02] MEDS: Fluconazole 100 MG Tablet 200 MG GT (08:58)
[2020-06-02] MEDS: Citalopram 20 MG Tablet GT (08:58)
[2020-06-02] MEDS: Lisinopril 20 MG Tablet GT (08:59)
[2020-06-02] MEDS: Lansoprazole 15 MG Capsule.DR GT ×2 (08:59→21:33)
[2020-06-02] MEDS: TBO-FILGRASTIM 480 MCG/0.8 ML ML SC (09:17)
[2020-06-02 12:36] LABS: Bedside Glucose 100 mg/dL (70-110)
--- NOTE | 2020-06-02 17:12 | PCM.PN.HOSP ---
Patient Problems: Active and Suspected Problems (Last Reviewed 05/29/20 @ 08:41 by Kerri Hale RN) Febrile neutropenia (Acute) Reason for Visit: Follow-up on febrile neutropenia Subjective: Patient was seen and examined. Objective: Physical exam: General: Alert, Oriented x3, Cooperative, No apparent distress HEENT: Atraumatic, PERRLA, EOMI, Normocephalic Oral: Moist Mucosa, No Gingival or Mucosal Lesions/ Ulcerations Neck: Supple, No JVD, Negative Carotid Bruits, Trachea Midline, Thyroid Normal Size and Texture Lungs: CTA Cardiovascular: Regular rate, Regular Rhythm, Normal S1, Normal S2, PMI Normal Abdomen: Bowel Sounds Present, Soft, Non Tender, Non-Distended, No Hepato-splenomegaly, - - PEG tube in place. Extremities: No edema Skin: No rashes, No breakdown Lymphatic: No Cervical, Supraclavicular, or Inguinal Adenopathy Neurological: Cranial nerves II-XII grossly intact, Motor Exam 5/5 strength throughout Psych/Mental Status: Normal Affect, Appropriate, Alert and oriented to time, place, person, mood and affect Vitals/I&O's: Vital Signs Temp Pulse Resp BP Pulse Ox 98.6 F 84 18 106/66 96 06/02/20 14:50 06/02/20 17:06 06/02/20 14:50 06/02/20 14:50 06/02/20 14:50 Oxygen Delivery Method Room Air Weight: 88.5 kg Body Mass Index (BMI) 30.5 Intake and Output for Last 24 Hours 05/31/20 06/01/20 06/02/20 23:59 23:59 23:59 Intake Total 4502.50 / 4502.50 2960 / 2960 1245.75 / 1245.75 Balance 4502.50 / 4502.50 2960 / 2960 1245.75 / 1245.75 Laboratory Results 06/02/20 06:25: WBC 1.3 L*, RBC 3.16 L, Hgb 9.6 L, Hct 29.1 L, MCV 92.1, MCH 30.4, MCHC 33.0, RDW Std Deviation 47.6 H, RDW Coeff of Steve 15.2 H, Plt Count 56 L, MPV 10.2, Neut % (Auto) Not Reportable, Absolute Neuts (auto) 0.7 L, Absolute Lymphs (auto) 0.13 L, Total Counted 100, Neutrophils % (Manual) 29 L, Band Neutrophils % 21 H, Lymphocytes % (Manual) 10 L, Monocytes % (Manual) 33 H, Eosinophils % (Manual) 2, Metamyelocytes % 3 H, Myelocytes % 2 H, Nucleated RBCs/100 WBC 1, Differential Comment , Diff Path Review May foll, Platelet Estimate MOD DEC, RBC Morphology NORM C+C 06/02/20 06:25: Sodium 138, Potassium 3.9, Chloride 104, Carbon Dioxide 28.0, Anion Gap 6, BUN 15, Creatinine 0.74, Estim Creat Clear Calc 107.93, Est GFR (MDRD) Af Amer 143, Est GFR (MDRD) Non-Af 118, BUN/Creatinine Ratio 20.4 H, Glucose 101, Calcium 8.6, Total Bilirubin 0.60, AST 8 L, ALT 15 L, Alkaline Phosphatase 48, Total Protein 6.4, Albumin 3.0 L, Globulin 3.4, Albumin/Globulin Ratio 0.9 06/02/20 11:57: POC Glucose 100 Current Medications Acetaminophen (Acetaminophen 650 Mg/20 Ml Udc) 650 mg GT Q6H PRN PRN PRN Reason: Pain Score 1-10/Temp > 100.7 F Last Admin: 06/02/20 06:32 Dose: 650 mg Documented by: Buspirone HCl (Buspirone 5 Mg Tablet) 20 mg GT TID [facility] Last Admin: 06/02/20 14:32 Dose: 20 mg Documented by: Citalopram Hydrobromide (Citalopram 20 Mg Tablet) 20 mg GT DAILY [facility] Last Admin: 06/02/20 08:58 Dose: 20 mg Documented by: Enteral Nutritional Formula (Jevity 1.5. 1,000 Ml Bottle) 230 ml GT 1500,1700,1900 [facility] Last Admin: 06/02/20 14:47 Dose: 230 ml Documented by: Enteral Nutritional Formula (Jevity 1.5. 1,000 Ml Bottle) 230 ml GT 0700,0900,1100,1300 [facility] Last Admin: 06/02/20 14:32 Dose: Not Given Documented by: Fluconazole (Fluconazole 100 Mg Tablet) 200 mg GT DAILY [facility] Last Admin: 06/02/20 08:58 Dose: 200 mg Documented by: Gabapentin (Gabapentin 300 Mg Capsule) 900 mg GT TIDCM [facility] Last Admin: 06/02/20 11:48 Dose: 900 mg Documented by: Heparin Sodium (Beef Lung) (Heparin Pf Lock 10 Units/Ml 50 Units/5 Ml Syringe) 50 units IV UD PRN PRN Reason: Port-a-Cath (VAD)Heparin Flush Cefepime HCl 2 gm/ Sodium (Chloride) 100 mls @ 200 mls/hr IV Q8 [facility]UREN Last Admin: 06/02/20 14:26 Dose: 200 mls/hr Documented by: Sodium Chloride () 250 mls @ 15 mls/hr IV .[id number] PRN PRN Reason: Saline Flush Last Infusion: 06/02/20 06:30 Dose: 0 mls/hr Documented by: Sodium Chloride () 250 mls @ 15 mls/hr IV .[id number] PRN PRN Reason: Additional IVPB Infusion Lansoprazole (Lansoprazole 15 Mg Capsule.Dr) 15 mg GT BID [facility] Last Admin: 06/02/20 08:59 Dose: 15 mg Documented by: Lidocaine/Diphenhydr/Alum/Mg/Simeth (Bmx Liquid 180 Ml) 15 ml PO ACHS PRN PRN Reason: MOUTH PAIN Last Admin: 06/01/20 16:15 Dose: 15 ml Documented by: Lisinopril (Lisinopril 20 Mg Tablet) 20 mg GT DAILY [facility] Last Admin: 06/02/20 08:59 Dose: 20 mg Documented by: Ondansetron HCl (Ondansetron 4 Mg/2 Ml Vial) 4 mg IV Q8H PRN PRN PRN Reason: NAUSEA/VOMITING Last Admin: 06/02/20 06:28 Dose: 4 mg Documented by: Oxycodone HCl (Oxycodone Soln 5 Mg/0.25 Ml Po.Syringe) 5 - 10 mg GT Q4H PRN PRN Reason: pain Last Admin: 06/01/20 20:36 Dose: 10 mg Documented by: Senna/Docusate Sodium (Senna/Docusate Sodium 1 Tablet) 2 tablet GT BID PRN PRN PRN Reason: Constipation Sodium Chloride (0.9% Saline Lock 10 Ml Syringe) 10 - 40 ml IV UD PRN PRN Reason: Port-a-Cath (VAD) Flush Last Admin: 06/02/20 06:27 Dose: 40 ml Documented by: Sodium Chloride (0.9 % Nacl (Sterile) Posiflush 10 Ml) 10 - 40 ml IV UD PRN PRN Reason: Port access or dressing change Sodium Chloride (Sodium Chloride 0.65% 1 [place].Btl) 2 spray NASAL BID PRN PRN PRN Reason: NASAL DRYNESS Tbo-Filgrastim (Tbo-Filgrastim 480 Mcg/0.8 Ml Ml) 480 mcg SC DAILY [facility] Last Admin: 06/02/20 09:17 Dose: 480 mcg Documented by: Zolpidem Tartrate (Zolpidem Tartrate 5 Mg Tablet) 5 mg GT QHS PRN PRN PRN Reason: INSOMNIA STROKE Vital Signs/Narrative: Vital Signs Temp Pulse Resp BP Pulse Ox 06/02/20 17:06 84 06/02/20 14:50 98.6 F 78 18 106/66 96 Medical Necessity - Tobacco Use Smoking Status: Never smoker Tobacco Use: Non-smoker Assessment/Plan All Active Problems (Last Reviewed 05/29/20 @ 08:41 by Kerri Hale RN) Febrile neutropenia (Acute) Mucositis due to antineoplastic therapy (Acute) 1. Acute febrile neutropenia, no clear source of infection. Urinalysis is unremarkable. CXR showed atelectasis. This was confirmed on Chest CT. WBC count is 1.3. Absolute neutrophil count is 700 Continue on cefepime IV and Granix 480 mg daily aiming for absolute neutrophil count more than 1000 Continue to trend CBCD. Continue on patient's old fluconazole. 2. Pancytopenia/thrombocytopenia, acute, likely secondary to chemotherapy Pancytopenia has been, comparable to what it has in the last few days. Continue to trend. 3. Squamous cell carcinoma of the tongue, status post radiation and chemotherapy with chronic dysphagia Continue on tube feeds via PEG tube 4. Anxiety/depression, continue on Buspar and citalopram 5. Hypertension, controlled, continue lisinopril 6. DVT prophylaxis?SCDs and early ambulation Inpatient E&M: 79540 Subs Hosp L2
[2020-06-02] MEDS: oxyCODONE Soln 5 MG/0.25 ML PO.SYRINGE GT (19:40)
[2020-06-03 04:00] VITALS: BP 114/70; PULSE 89; RESP 14; TEMP 36.9; O2SAT 98
[2020-06-03] MEDS: Acetaminophen 650 MG/20 ML UDC GT (04:35)
[2020-06-03 05:10] LABS: Hematocrit 30.8 % (40-54); Hemoglobin 9.9 g/dL (13.0-16.5); Mean Corp Hgb Conc 32.1 g/dL (32-36); Mean Corpuscular Hgb 29.9 pg (27.0-32.0); Mean Corpuscular Volume 93.1 fL (80-94); Mean Platelet Vol. 9.9 fl (6.2-12.0); POSITIVE COUNT YES; POSITIVE DIFFERENTIAL YES; POSITIVE MORPHOLOGY YES; Platelet Count 73 K/mm3 (150-450); RBC Distribution Width CV 15.7 % (11.6-14.6); RBC Distribution Width SD 48.8 fl (35.1-43.9); Red Blood Count 3.31 M/mm3 (4.6-6.2); White Blood Count 2.8 K/mm3 (4.4-11.0)
[2020-06-03 05:50] LABS: ALB/GLOB Ratio 0.9 RATIO (0.9-2.4); AST(SGOT) 7 U/L (15-37); Alanine Aminotransfer ALT/SGPT 15 U/L (16-61); Alkaline Phosphatase 51 U/L (45-117); Anion Gap 5 (5-15); BUN 15 mg/dL (7-18); BUN/Creat Ratio 18.7 RATIO (10-20); Calcium,Total 8.5 mg/dL (8.5-10.1); Chloride 104 mmol/L (98-107); EST Glomerular Filtration Rate 107 mL/min (>60); Est Glom Filt Rate - Afr Amer 129 mL/min (>60); Estimated Creatinine Clearance 99.84 ml/min; Globulin 3.5 g/dL (2.2-4.2); Glucose 94 mg/dL (74-106); Potassium 4.1 mmol/L (3.5-5.1); Protein, Total 6.5 g/dL (6.4-8.2); Sodium Level 139 mmol/L (136-145)
[2020-06-03 06:00] LABS: Basophil 1 % (0-1); Eosinophil 4 % (0-5); Lymphocyte 15 % (19-41); Metamyelocyte 7 % (0-1); Monocyte 14 % (0-10); Myelocyte 4 (0-0); Neutrophil-Band 4 % (0-5); Neutrophil-Segmented 51 % (47-70); Nucleated Red Bld Cells,Manual 2 % (0-5); Total Cells Counted 100 (MANUAL DIFF)
[2020-06-03 06:01] LABS: Differential Indicated MANUAL DIFF; Hypochromasia 2+; Macrocytosis 1+; Microcytosis 2+; Platelet Estimate MOD (ADEQ)
[2020-06-03 06:02] LABS: Absolute Lymphocyte Count 0.42 X10^3/uL (0.83-4.51); Absolute Neutrophil Count 1.3 X10^3/uL (2.0-7.7); Lymphocyte # 0.42 X10^3/ul (4.0); Neutrophil # 1.25 X10^3/uL (2.7-7.7)
[2020-06-03] MEDS: busPIRone 5 MG Tablet 20 MG GT (06:30)
[2020-06-03] MEDS: 0.9% Saline Lock 10 ML Syringe IV (06:35)
[2020-06-03] MEDS: Jevity 1.5. 1,000 ML Bottle 230 ML GT (06:51)
--- NOTE | 2020-06-03 08:08 | DCINST_ITS ---
- Discharge Diagnoses Current Active Problems: Current Active and Chronic Problems (Last Reviewed 05/29/20 @ 08:41 by Kerri Hale RN) Febrile neutropenia (Acute) Depression (Chronic) Hypertension (Chronic) Tongue cancer (Chronic) Regional lymph node metastasis present (Chronic) Reason(s) for Visit for Discharge Instructions: Neutropenia You will use the following diet at home:: Regular Your food should be the consistency of: Regular Your liquids should be the consistency of: Regular/Thin Discharge Activity: Return to Normal Activity Additional Instructions: Continue to take all your medications as prescribed. Follow-up with oncology and radiation oncology as scheduled. Continue to keep yourself well-hydrated Allergies/Adverse Reactions: Allergies tramadol Allergy (Intermediate, Verified 05/30/20 12:31) Hives Medications to take at Discharge Cholecalciferol (VIT D3) [Vitamin D3] 1,000 unit PO DAILY 09/23/15 Citalopram [Celexa] 20 mg PO DAILY 09/23/15 Pantoprazole Sodium [Protonix] 20 mg PO BID 09/23/15 busPIRone [Buspar] 20 mg PO TID 09/23/15 Lisinopril [Zestril] 20 mg PO DAILY 04/04/20 Magic Mouth Wash 15 ml PO Q6H PRN PRN #300 ml 04/04/20 Modafinil [Provigil] 200 mg PO DAILY PRN PRN 04/04/20 Lidocaine/Prilocaine [Lidocaine-Prilocaine Cream] 1 applicatio TP DAILY PRN PRN 30 Days #1 tube 04/26/20 Ondansetron [Ondansetron Odt] 8 mg PO Q8H PRN PRN 10 Days #30 tab.rapdis 05/10/20 Oxycodone HCl 5 ml PO 4X/DAY PRN PRN #400 solution 05/24/20 Fluconazole 200 mg PO DAILY 05/30/20 Gabapentin [Neurontin] 900 mg PO TID 05/30/20 Lactose-Reduced Food/Fiber [Isosource 1.5 [place] Liquid] 250 ml GT .7X/DAY 05/30/20 Primary Care Physician: Luis Alberto Boo MD [Primary Care Provider] - Please follow up with your Primary Care Physician in: within 2 weeks Test Results: Test results from this visit will be discussed in further detail at your follow- up appointment, if applicable. Please Follow Up With: Karen Landers MD When: within 1 week for repeat blood work Please Follow Up With: Kwaku Mckinley DO When: as scheduled Proposed Discharge Date: 06/03/20
--- NOTE | 2020-06-03 08:11 | DS.PCM_ITS ---
Discharge Date and Diagnosis - Problem List Patient Problems: Active and Suspected Problems (Last Reviewed 05/29/20 @ 08:41 by Kerri Hale RN) Febrile neutropenia (Acute) Date of Admission: 05/30/20 Date of Discharge: 06/03/20 - Primary Discharge Diagnosis Acute Problems: Active Problems (Last Reviewed 05/29/20 @ 08:41 by Kerri Hale RN) Febrile neutropenia (Acute) - Secondary Discharge Diagnosis Chronic Problems: Chronic Problems (Last Reviewed 05/29/20 @ 08:41 by Kerri Hale RN) Depression (Chronic) Hypertension (Chronic) Tongue cancer (Chronic) Regional lymph node metastasis present (Chronic) Hospital Course and Treatment Imaging Results: Clinical Impression(s) from Imaging Studies Chest X-Ray 05/30/20 13:25 IMPRESSION: Minimal opacity at the left base may represent atelectasis and small effusion. Pneumonia should be excluded clinically. Electronically Signed: Dawit Edwards at 16:16 EDT Tel , Service support , Chest CT 05/30/20 17:33 IMPRESSION: Bibasilar atelectasis or infiltrates. Old granulomatous disease on the left. Electronically Signed: Chad Chun MD at 19:16 EDT , Service support , Operations: None Procedures: None Summary of Care Provided: The patient is a 54 year old M with past medical history of tongue CA currently undergoing chemotherapy and radiation therapy. Patient is also on tube feeds. Patient went to the infusion center for his scheduled IV fluids. He complained of fever and chills. This improved after the IV fluids. Patient reportedly denied any sick contacts. No exposure to COVID-19. He admitted to some chronic sore throat but no abdominal pain, nausea or vomiting or shortness of breath. His work-up in the emergency department was significant for severe leukopenia, anemia and thrombocytopenia. His total WBC count was 0.7 with an absolute neutrophil count of 400. His hemoglobin was 9.3, platelet count was 32 He was admitted to the [facility] floor, put in neutropenic precautions, started on IV cefepime, Granix, and his fluconazole was continued. Chest x-ray had showed some atelectasis. CT scan of the chest fine bibasilar atelectasis or infiltrates with old granulomatous disease on the left. He continued to improve and his BC count at discharge was 2.8 with an absolute neutrophil count of 1300. He was encouraged to use his incentive spirometer. Patient to follow-up with his primary care doctor within 2 weeks. He will follow-up with oncology and radiation oncology as scheduled. He knows that he needs repeat blood work within a week to follow-up on his blood counts. Patient Problems: Active and Suspected Problems (Last Reviewed 05/29/20 @ 08:41 by Kerri Hale RN) Febrile neutropenia (Acute) Subjective: On the day of discharge, patient was seen and examined. Denied any new complaint. No fever. Objective: Physical exam: General: Alert, Oriented x3, Cooperative, No apparent distress HEENT: Atraumatic, PERRLA, EOMI, Normocephalic Oral: Moist Mucosa, No Gingival or Mucosal Lesions/ Ulcerations Neck: Supple, No JVD, Negative Carotid Bruits, Trachea Midline, Thyroid Normal Size and Texture Lungs: CTA Cardiovascular: Regular rate, Regular Rhythm, Normal S1, Normal S2, PMI Normal Abdomen: Bowel Sounds Present, Soft, Non Tender, Non-Distended, No Hepato- splenomegaly, - - PEG tube in place. Extremities: No edema Skin: No rashes, No breakdown Lymphatic: No Cervical, Supraclavicular, or Inguinal Adenopathy Neurological: Cranial nerves II-XII grossly intact, Motor Exam 5/5 strength throughout Psych/Mental Status: Normal Affect, Appropriate, Alert and oriented to time, place, person, mood and affect - Physical Exam Vitals/I&O's: Vital Signs Temp Pulse Resp BP Pulse Ox 98.4 F 89 14 114/70 98 06/03/20 04:00 06/03/20 04:00 06/03/20 04:00 06/03/20 04:00 06/03/20 04:00 Oxygen Delivery Method Room Air Weight: 88.5 kg Body Mass Index (BMI) 30.5 Intake and Output for Last 24 Hours 06/01/20 06/02/20 06/03/20 23:59 23:59 23:59 Intake Total 2960 / 2960 2320.75 / 2320.75 100 / 100 Balance 2960 / 2960 2320.75 / 2320.75 100 / 100 Laboratory Results 06/02/20 06:25: Absolute Neuts (auto) 0.7 L, Absolute Lymphs (auto) 0.13 L, Differential Comment , Diff Path Review December06/02/20 11:57: POC Glucose 100 06/03/20 04:52: WBC 2.8 L, RBC 3.31 L, Hgb 9.9 L, Hct 30.8 L, MCV 93.1, MCH 29.9, MCHC 32.1, RDW Std Deviation 48.8 H, RDW Coeff of Steve 15.7 H, Plt Count 73 L, MPV 9.9, Neut % (Auto) Not Reportable, Absolute Neuts (auto) 1.3 L, Absolute Lymphs (auto) 0.42 L, Total Counted 100, Neutrophils % (Manual) 51, Band Neutrophils % 4, Lymphocytes % (Manual) 15 L, Monocytes % (Manual) 14 H, Eosinophils % (Manual) 4, Basophils % (Manual) 1, Metamyelocytes % 7 H, Myelocytes % 4 H, Nucleated RBCs/100 WBC 2, Diff Path Review December, Platelet Estimate MOD, Hypochromasia 2+, Microcytosis 2+, Macrocytosis 1+ 06/03/20 04:52: Sodium 139, Potassium 4.1, Chloride 104, Carbon Dioxide 30.0, Anion Gap 5, BUN 15, Creatinine 0.80, Estim Creat Clear Calc 99.84, Est GFR (MDRD) Af Amer 129, Est GFR (MDRD) Non-Af 107, BUN/Creatinine Ratio 18.7, Glucose 94, Calcium 8.5, Total Bilirubin 0.40, AST 7 L, ALT 15 L, Alkaline Phosphatase 51, Total Protein 6.5, Albumin 3.0 L, Globulin 3.5, Albumin/Globulin Ratio 0.9 Current Medications Acetaminophen (Acetaminophen 650 Mg/20 Ml Udc) 650 mg GT Q6H PRN PRN PRN Reason: Pain Score 1-10/Temp > 100.7 F Last Admin: 06/03/20 04:35 Dose: 650 mg Documented by: Buspirone HCl (Buspirone 5 Mg Tablet) 20 mg GT TID [facility] Last Admin: 06/03/20 06:30 Dose: 20 mg Documented by: Citalopram Hydrobromide (Citalopram 20 Mg Tablet) 20 mg GT DAILY [facility] Last Admin: 06/02/20 08:58 Dose: 20 mg Documented by: Enteral Nutritional Formula (Jevity 1.5. 1,000 Ml Bottle) 230 ml GT 0700,0900,1100,1300 [facility] Last Admin: 06/03/20 06:51 Dose: 230 ml Documented by: Enteral Nutritional Formula (Jevity 1.5. 1,000 Ml Bottle) 230 ml GT 1500,1700,1900 [facility] Fluconazole (Fluconazole 100 Mg Tablet) 200 mg GT DAILY [facility] Last Admin: 06/02/20 08:58 Dose: 200 mg Documented by: Gabapentin (Gabapentin 300 Mg Capsule) 900 mg GT TIDCM [facility] Last Admin: 06/02/20 17:19 Dose: 900 mg Documented by: Heparin Sodium (Beef Lung) (Heparin Pf Lock 10 Units/Ml 50 Units/5 Ml Syringe) 50 units IV UD PRN PRN Reason: Port-a-Cath (VAD)Heparin Flush Cefepime HCl 2 gm/ Sodium (Chloride) 100 mls @ 200 mls/hr IV Q8 [facility] Last Infusion: 06/03/20 07:09 Dose: Infused Documented by: Sodium Chloride () 250 mls @ 15 mls/hr IV .[id number] PRN PRN Reason: Saline Flush Last Infusion: 06/03/20 07:09 Dose: 15 mls/hr Documented by: Sodium Chloride () 250 mls @ 15 mls/hr IV .[id number] PRN PRN Reason: Additional IVPB Infusion Lansoprazole (Lansoprazole 15 Mg Capsule.) 15 mg GT BID [facility] Last Admin: 06/02/20 21:33 Dose: 15 mg Documented by: Lidocaine/Diphenhydr/Alum/Mg/Simeth (Bmx Liquid 180 Ml) 15 ml PO ACHS PRN PRN Reason: MOUTH PAIN Last Admin: 06/01/20 16:15 Dose: 15 ml Documented by: Lisinopril (Lisinopril 20 Mg Tablet) 20 mg GT DAILY [facility] Last Admin: 06/02/20 08:59 Dose: 20 mg Documented by: Ondansetron HCl (Ondansetron 4 Mg/2 Ml Vial) 4 mg IV Q8H PRN PRN PRN Reason: NAUSEA/VOMITING Last Admin: 06/02/20 06:28 Dose: 4 mg Documented by: Oxycodone HCl (Oxycodone Soln 5 Mg/0.25 Ml Po.Syringe) 5 - 10 mg GT Q4H PRN PRN Reason: pain Last Admin: 06/02/20 19:40 Dose: 10 mg Documented by: Senna/Docusate Sodium (Senna/Docusate Sodium 1 Tablet) 2 tablet GT BID PRN PRN PRN Reason: Constipation Sodium Chloride (0.9% Saline Lock 10 Ml Syringe) 10 - 40 ml IV UD PRN PRN Reason: Port-a-Cath (VAD) Flush Last Admin: 06/03/20 06:35 Dose: 10 ml Documented by: Sodium Chloride (0.9 % Nacl (Sterile) Posiflush 10 Ml) 10 - 40 ml IV UD PRN PRN Reason: Port access or dressing change Sodium Chloride (Sodium Chloride 0.65% 1 [place] Pickton.Btl) 2 spray NASAL BID PRN PRN PRN Reason: NASAL DRYNESS Tbo-Filgrastim (Tbo-Filgrastim 480 Mcg/0.8 Ml Ml) 480 mcg SC DAILY [facility] Last Admin: 06/02/20 09:17 Dose: 480 mcg Documented by: Zolpidem Tartrate (Zolpidem Tartrate 5 Mg Tablet) 5 mg GT QHS PRN PRN PRN Reason: INSOMNIA Discharge Diet: No Restrictions Discharge Activity: Return to Normal Activity Home Medications: Medications to take at Discharge Cholecalciferol (VIT D3) [Vitamin D3] 1,000 unit PO DAILY 09/23/15 Citalopram [Celexa] 20 mg PO DAILY 09/23/15 Pantoprazole Sodium [Protonix] 20 mg PO BID 09/23/15 busPIRone [Buspar] 20 mg PO TID 09/23/15 Lisinopril [Zestril] 20 mg PO DAILY 04/04/20 Magic Mouth Wash 15 ml PO Q6H PRN PRN #300 ml 04/04/20 Modafinil [Provigil] 200 mg PO DAILY PRN PRN 04/04/20 Lidocaine/Prilocaine [Lidocaine-Prilocaine Cream] 1 applicatio TP DAILY PRN PRN 30 Days #1 tube 04/26/20 Ondansetron [Ondansetron Odt] 8 mg PO Q8H PRN PRN 10 Days #30 tab.rapdis 05/10/20 Oxycodone HCl 5 ml PO 4X/DAY PRN PRN #400 solution 05/24/20 Fluconazole 200 mg PO DAILY 05/30/20 Gabapentin [Neurontin] 900 mg PO TID 05/30/20 Lactose-Reduced Food/Fiber [Isosource 1.5 Braden Liquid] 250 ml GT .7X/DAY 05/30/20 Primary Care Physician: Luis Alberto Boo MD [Primary Care Provider] - Please follow up with your Primary Care Physician in: within 2 weeks Please Follow Up With: Karen Landers MD When: within 1 week for repeat blood work Please Follow Up With: Kwaku Mckinley DO When: as scheduled Disposition: Home Minutes spent on discharge:: 45 Patient Condition:: Stable Medical Necessity - Tobacco Use Smoking Status: Never smoker Tobacco Use: Non-smoker Meaningful Use Info Meaningful Use Diagnoses (Choose all that apply): None applicable Inpatient E&M: 73074 [facility]
[2020-06-03 09:10] VITALS: O2SAT 93
[2020-06-03] MEDS: Citalopram 20 MG Tablet GT (09:18)
[2020-06-03] MEDS: Lansoprazole 15 MG Capsule.DR GT (09:18)
[2020-06-03] MEDS: Lisinopril 20 MG Tablet GT (09:19)
[2020-06-03] MEDS: Fluconazole 100 MG Tablet 200 MG GT (09:19)
[2020-06-03] MEDS: Gabapentin 300 MG Capsule 900 MG GT (09:19)
[2020-06-03] MEDS: TBO-FILGRASTIM 480 MCG/0.8 ML ML SC (09:31)
[2020-06-05 11:58] LABS: Pathologist Review Reviewed
[2020-06-05 11:58] LABS: Pathologist Review Reviewed
--- NOTE | 2020-06-05 15:43 | CASEMGMT ---
TRISH ALEJANDRE Discharge Follow-up Phone Call: SHILOHLorraine: Domitila Strata: 3 Call Date: 06/05/20 Discharge Date: 06/03/2020 Time of Call: 1545 Duration: 3 min Admitting Diagnosis: Febrile Neutropenia TRISH ALEJANDRE completed follow-up phone call after recent hospitalization. Patient states he over did it Friday morning but is doing better. Patient had no questions or concerns regarding discharge instructions. Patient follow-up with Dr. Landers this morning. Patient had no further questions or concerns at this time.
== END 2020-06-03 10:40 | disposition home or self-care (01) | DRG 809 ==
LOC: ED 13:14 → MS3 05-31 07:03
PROVIDERS: Admitting Provider Hospitalist; Emergency Provider Emergency Medicine; PCP Family Medicine; Visit Provider Internal Medicine
DX: D70.9 Neutropenia, unspecified (principal); C77.9 Secondary and unspecified malignant neoplasm of lymph node, unspecified; J98.11 Atelectasis; R50.81 Fever presenting with conditions classified elsewhere; D61.810 Antineoplastic chemotherapy induced pancytopenia; F32.9 Major depressive disorder, single episode, unspecified; I10 Essential (primary) hypertension; C02.9 Malignant neoplasm of tongue, unspecified; T45.1X5A Adverse effect of antineoplastic and immunosuppressive drugs, initial encounter; F41.9 Anxiety disorder, unspecified; Z92.3 Personal history of irradiation; Z83.3 Family history of diabetes mellitus
CPT/HCPCS: 36415; 36591; 71045; 71250; 80048; 80053; 81001; 82962; 83605; 85025; 85610; 87635; 97116; 97162; 97530; 97802; 99251; 99283; J7030; J7050; A4216; G0463; J1447; J2405; U0002

== ENCOUNTER 2020-06-23 11:21 | Emergency (ER) | payer OTHER, SELFPAY ==
[2020-04-04 09:58] VITALS: BMI 33.7
[2020-06-22 08:35] VITALS: BMI 28.9
[2020-06-23 11:22] VITALS: BP 107/63; PULSE 92; RESP 16; TEMP 37.5; O2SAT 99
[2020-06-23 12:22] VITALS: BP 104/71; PULSE 94; RESP 21; TEMP 37.5; O2SAT 97
[2020-06-23 13:16] LABS: Absolute Lymphocyte Count 0.12 X10^3/uL (0.83-4.51); Absolute Neutrophil Count 1.9 X10^3/uL (2.0-7.7); Hematocrit 28.9 % (40-54); Lymphocyte # 0.12 X10^3/ul (4.0); Mean Corp Hgb Conc 31.1 g/dL (32-36); Mean Corpuscular Hgb 30.7 pg (27.0-32.0); Mean Corpuscular Volume 98.6 fL (80-94); Mean Platelet Vol. 9.2 fl (6.2-12.0); Monocyte# 0.35 X10^3/uL; Monocyte% 14.5 % (0-10); NRBC Flagged by Analyzer 0 % (0-5); Neutrophil # 1.94 X10^3/uL (2.7-7.7); Neutrophil % 80.1 % (47-70); POSITIVE DIFFERENTIAL YES; Platelet Count 115 K/mm3 (150-450); RBC Distribution Width CV 18.4 % (11.6-14.6); RBC Distribution Width SD 63.5 fl (35.1-43.9); Red Blood Count 2.93 M/mm3 (4.6-6.2); White Blood Count 2.4 K/mm3 (4.4-11.0)
[2020-06-23 13:18] LABS: AST(SGOT) 6 U/L (15-37); Alanine Aminotransfer ALT/SGPT 21 U/L (16-61); Albumin, Serum 3.3 g/dL (3.2-5.0); Alkaline Phosphatase 58 U/L (45-117); Anion Gap 4 (5-15); BUN 11 mg/dL (7-18); BUN/Creat Ratio 14.9 RATIO (10-20); Calcium,Total 8.7 mg/dL (8.5-10.1); Chloride 104 mmol/L (98-107); Creatinine, Serum 0.74 mg/dL (0.70-1.30); Differential Indicated SCAN CRITERIA MET; EST Glomerular Filtration Rate 118 mL/min (>60); Est Glom Filt Rate - Afr Amer 142 mL/min (>60); Estimated Creatinine Clearance 136.28 ml/min; Globulin 3.3 g/dL (2.2-4.2); Glucose 90 mg/dL (74-106); Magnesium 2.1 mg/dL (1.6-2.6); Phosphorus 3.5 mg/dL (2.5-4.9); Potassium 4.2 mmol/L (3.5-5.1); Protein, Total 6.6 g/dL (6.4-8.2); Sodium Level 137 mmol/L (136-145)
[2020-06-23 13:20] LABS: Mucous, Urine 0 SEEN /hpf (<or=2+); Red Blood Cells-Urine 0 SEEN /hpf (0-5); White Blood Cells 0 SEEN /hpf (0-5)
[2020-06-23 13:23] LABS: Probe Check PASS; Specimen Processing Control PASS
[2020-06-23 13:27] LABS: Color, Urine Yellow (Yellow); Glucose, Dipstick Normal (Normal); Ketone-Dipstick Negative (Negative); Leukocyte Esterase-Dipstick Negative /ul (Negative); Nitrite-Dipstick Negative (Negative); Occult Blood-Urine Negative /ul (Negative); Protein-Dipstick Negative (Negative); Urine Bilirubin Dipstick Negative (Negative); Urine Clarity Clear (Clear); Urine Urobilinogen Normal (Normal)
--- NOTE | 2020-06-23 13:50 | RAD_ITS ---
STUDY: X-RAY CHEST REASON FOR EXAM: Male, 54 years old. CONGESTION WITH SORE THROAT AND FEVER X3 DAYS. -- CHEMO X2 WEEKS AGO- TONGUE CA, CURRENT RAD TREATMENTS TECHNIQUE: Single AP portable view of the chest. COMPARISON: Comparison is made with prior study dated 05/30/2020. FINDINGS: EKG electrodes are seen. A right-sided portacatheter is present. At this time, the tip is heading cephalad into the internal jugular vein. Mild increased markings at the lung bases suggestive of bibasilar atelectasis and/or infiltrate. There is no demonstrated pleural abnormality. Normal size heart. Normal mediastinum and radha. Normal visualized pulmonary arteries. Normal visualized aortic arch and descending thoracic aorta. Normal visualized thoracic spine. Normal visualized ribs, clavicles, and shoulders. There is no demonstrated abnormality of the visualized soft tissue structures of the upper abdomen. RAD/Chest 1 View (Portable) IMPRESSION: Mild increased markings at the lung bases suggestive of bibasilar atelectasis and/or early infiltrate. The tip of the right portacatheter is seen heading cephalad into the right internal jugular vein. Electronically Signed: Tuan Young, at 14:05 EST , Service support ,
[2020-06-23 14:05] LABS: Anisocytosis 3+; Differential Comment SCANNED
[2020-06-23 14:09] LABS: Bacteria RARE /hpf (None Seen); Squamous Epithelial Cells - UA 0-5 SEEN /hpf (0-5)
[2020-06-23 14:32] LABS: Partial Thromboplast Time 28.3 Seconds (24.1-36.2)
--- NOTE | 2020-06-23 14:50 | ED.VIS.GEN ---
History of Present Illness Chief Complaint: Sore Throat Informant: Patient Narrative: Patient currently undergoing chemotherapy and radiation for tongue cancer. He went to the infusion center today for hydration. His last chemo was last week. He was noted to have a temperature of 100.4 and was sent to the emergency room for evaluation. 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 (4) Tongue cancer Status: Chronic (5) Regional lymph node metastasis present Status: Chronic Past Medical History - Allergies and Home Meds Allergies/Adverse Reactions: Allergies tramadol Allergy (Intermediate, Verified 06/23/20 11:21) Hives Primary Care Physician: Luis Alberto Boo MD [Primary Care Provider] - Prior records reviewed: Yes Surgical History: herniorrhaphy, - - Tongue cancer Smoking Status: Never smoker Alcohol: None Drugs: None - Family History Paternal Family History: Family History (Last Reviewed 06/19/20 @ 09:40 by Jyoti Devries) Mother Diabetes Family History: Reports: No pertinent history Review of Systems General: Reports: Fever - 100.4. Denies: Chills, Sweats Eyes: Denies: Visual changes - bilaterally, Diplopia ENT: Reports: Rhinorrhea, Sore throat Cardiovascular: Denies: Chest pain, Palpitations Respiratory: Denies: Dyspnea, Cough, Dyspnea on exertion Gastrointestinal: Denies: Abdominal pain, Nausea, Vomiting, Diarrhea, Melena, Hematochezia Genitourinary: Denies: Dysuria, Hematuria, Frequency Musculoskeletal: Denies: Back pain, Extremity Pain Skin: Denies: Rash, Wounds Neurological: Denies: Headache, Weakness, Numbness Physical Exam Vital Signs/Narrative: Vital Signs Temp Pulse Resp BP Pulse Ox 06/23/20 12:22 99.5 F H 94 21 H 104/71 97 06/23/20 11:22 99.5 F H 92 16 107/63 99 Inital Vital Signs reviewed: Yes General: Well nourished, Well developed, No Acute Distress Head: Normocephalic, Atraumatic Eyes: Perrl, EOMI ENT: Moist mucous membranes, No rhinorrhea, - - She has very limited mouth opening. Using a tongue depressor I can still barely see his uvula. There appears to be some erythema of the soft palate. He appears to be handling his secretions normally. Neck: Supple, Nontender Cardiovascular: Regular rate, Regular rhythm, No murmurs Respiratory: No distress, CTA bilaterally, Chest nontender Abdomen: Soft, Nontender, Nondistended, Normal bowel sounds Back: Nontender, Normal Inspection Extremities: Nontender, No edema Skin: Normal color, No rash Neurological: Alert, Oriented x3, Cranial nerves II-XII grossly intact, Normal Strength, Normal Sensation Psychological: Normal affect, Normal Mood Diagnostic/Tx/Re-eval Clinical Impression(s) from Imaging Studies Chest X-Ray 06/23/20 13:50 IMPRESSION: Mild increased markings at the lung bases suggestive of bibasilar atelectasis and/or early infiltrate. The tip of the right portacatheter is seen heading cephalad into the right internal jugular vein. Electronically Signed: Tuan Young, at 14:05 EST , Service support , Laboratory Last Values WBC 2.4 K/mm3 (4.4-11.0) L 06/23/20 12:49 RBC 2.93 M/mm3 (4.6-6.2) L 06/23/20 12:49 Hgb 9.0 g/dL (13.0-16.5) L 06/23/20 12:49 Hct 28.9 % (40-54) L 06/23/20 12:49 MCV 98.6 fL (80-94) H D 06/23/20 12:49 MCH 30.7 pg (27.0-32.0) 06/23/20 12:49 MCHC 31.1 g/dL (32-36) L D 06/23/20 12:49 RDW Std Deviation 63.5 fl (35.1-43.9) H 06/23/20 12:49 RDW Coeff of Steve 18.4 % (11.6-14.6) H 06/23/20 12:49 Plt Count 115 K/mm3 (150-450) L 06/23/20 12:49 MPV 9.2 fl (6.2-12.0) 06/23/20 12:49 Immature Gran % (Auto) 0.400 % (0.0-0.9) 06/23/20 12:49 Neut % (Auto) 80.1 % (47-70) H 06/23/20 12:49 Lymph % (Auto) 5.0 % (19-41) L 06/23/20 12:49 [place] % (Auto) 14.5 % (0-10) H 06/23/20 12:49 Eos % (Auto) 0.0 % (0-5) 06/23/20 12:49 Baso % (Auto) 0.0 % (0-1) 06/23/20 12:49 Absolute Neuts (auto) 1.9 X10^3/uL (2.0-7.7) L 06/23/20 12:49 Absolute Lymphs (auto) 0.12 X10^3/uL (0.83-4.51) L 06/23/20 12:49 Nucleated RBC % 0 % (0-5) 06/23/20 12:49 Differential Comment SCANNED 06/23/20 12:49 Diff Path Review December06/23/20 12:49 Anisocytosis 3+ 06/23/20 12:49 APTT 28.3 Seconds (24.1-36.2) 06/23/20 12:49 Sodium 137 mmol/L (136-145) 06/23/20 12:49 Potassium 4.2 mmol/L (3.5-5.1) 06/23/20 12:49 Chloride 104 mmol/L (98-107) 06/23/20 12:49 Carbon Dioxide 29.0 mmol/L (21.0-32.0) 06/23/20 12:49 Anion Gap 4 (5-15) L 06/23/20 12:49 BUN 11 mg/dL (7-18) 06/23/20 12:49 Creatinine 0.74 mg/dL (0.70-1.30) 06/23/20 12:49 Estim Creat Clear Calc 136.28 ml/min 06/23/20 12:49 Est GFR (MDRD) Af Amer 142 mL/min (>60) 06/23/20 12:49 Est GFR (MDRD) Non-Af 118 mL/min (>60) 06/23/20 12:49 BUN/Creatinine Ratio 14.9 RATIO (10-20) 06/23/20 12:49 Glucose 90 mg/dL (74-106) 06/23/20 12:49 Calcium 8.7 mg/dL (8.5-10.1) 06/23/20 12:49 Phosphorus 3.5 mg/dL (2.5-4.9) 06/23/20 12:49 Magnesium 2.1 mg/dL (1.6-2.6) 06/23/20 12:49 Total Bilirubin 0.30 mg/dL (0.20-1.00) 06/23/20 12:49 AST 6 U/L (15-37) L 06/23/20 12:49 ALT 21 U/L (16-61) 06/23/20 12:49 Alkaline Phosphatase 58 U/L (45-117) 06/23/20 12:49 Total Protein 6.6 g/dL (6.4-8.2) 06/23/20 12:49 Albumin 3.3 g/dL (3.2-5.0) 06/23/20 12:49 Globulin 3.3 g/dL (2.2-4.2) 06/23/20 12:49 Albumin/Globulin Ratio 1.0 RATIO (0.9-2.4) 06/23/20 12:49 Urine Color Yellow (Yellow) 06/23/20 13:10 Urine Clarity Clear (Clear) 06/23/20 13:10 Urine pH 6.0 (5.0 - 8.0) 06/23/20 13:10 Ur Specific [place] 1.010 (1.002-1.030) 06/23/20 13:10 Urine Protein Negative mg/dl (Negative) 06/23/20 13:10 Urine Glucose (UA) Normal mg/dl (Normal) 06/23/20 13:10 Urine Ketones Negative mg/dl (Negative) 06/23/20 13:10 Urine Occult Blood Negative /ul (Negative) 06/23/20 13:10 Urine Nitrite Negative (Negative) 06/23/20 13:10 Urine Bilirubin Negative mg/dL (Negative) 06/23/20 13:10 Urine Urobilinogen Normal mg/dl (Normal) 06/23/20 13:10 Ur Leukocyte Esterase Negative /ul (Negative) 06/23/20 13:10 Urine RBC 0 SEEN /hpf (0-5) 06/23/20 13:10 Urine WBC 0 SEEN /hpf (0-5) 06/23/20 13:10 Ur Squamous Epith Cells 0-5 SEEN /hpf (0-5) 06/23/20 13:10 Urine Bacteria RARE /hpf (None Seen) 06/23/20 13:10 Urine Mucus 0 SEEN /hpf (<or=2+) 06/23/20 13:10 COVID-19 (LEIGHA) Negative (Not Detect) 06/23/20 12:20 - Medical Decision Making Basic labs were obtained. He is Covid negative. Patient received an IV antibiotics we obtained the work-up. I spoke with his oncologist. Patient will be discharged home to follow-up with them on Friday. I will write for the patient have more oxycodone. He is unsure if he is on to be able to fill it due to financial constraints. ED Disposition - Plan for ED Patient: Disposition: Home or Assisted Living Diagnosis: Mucositis due to antineoplastic therapy, Tongue cancer Prescriptions: Oxycodone HCl 5 ml PO 4X/DAY PRN PRN #400 solution PRN Reason: pain Prescription Printed Referrals: Luis Alberto Boo MD [Primary Care Provider] - Karen Landers MD [STAFF PHYSICIAN] - Keep Shayy appointment
[2020-06-23 14:53] LABS: International Normalized Ratio 1.1; Prothrombin Time (Protime)PT. 13.7 SECONDS (11.7-14.9)
[2020-06-23 14:56] VITALS: BP 113/63; PULSE 79; RESP 14; O2SAT 99
[2020-06-23 16:08] VITALS: BP 117/64; PULSE 77; RESP 12; O2SAT 98
--- NOTE | 2020-06-23 16:45 | ED.RN ---
port flushed with hep loc [facility]
[2020-06-23 16:46] VITALS: BP 113/66; PULSE 89; RESP 16; TEMP 37.2; O2SAT 99
[2020-06-26 13:20] LABS: Pathologist Review Reviewed
== END 2020-06-23 16:47 | disposition home or self-care (01) ==
PROVIDERS: Emergency Provider Emergency Medicine; PCP Family Medicine
DX: K12.31 Oral mucositis (ulcerative) due to antineoplastic therapy (principal); C02.9 Malignant neoplasm of tongue, unspecified; I10 Essential (primary) hypertension; Z88.5 Allergy status to narcotic agent; Z88.8 Allergy status to other drugs, medicaments and biological substances; F32.9 Major depressive disorder, single episode, unspecified; C77.9 Secondary and unspecified malignant neoplasm of lymph node, unspecified
CPT/HCPCS: 71045; 80053; 81001; 83735; 84100; 85025; 85610; 85730; 87040; 87635; 96365; 96366; 99284; J7040; J7050; A4216; U0002

== ENCOUNTER → 2020-08-16 13:05 | Outpatient (CLI) | payer OTHER, SELFPAY ==
[2020-04-04 09:58] VITALS: BMI 33.7
[2020-08-09 12:55] VITALS: BMI 29.6
--- NOTE | 2020-08-16 18:09 | ST.MBS ---
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 PER TRIAL): PENETRATION / ASPIRATION SCALE (TORRES): 1 = does not enter airway 2 = enters airway/above vocal folds/ejected 3 = enters airway/above vocal folds/not ejected 4 = enters airway/contacts vocal folds/ejected 5 = enters airway/contacts vocal folds/not ejected 6 = enters airway/below vocal folds/ejected 7 = enters airway/below vocal folds/not ejected despite effort 8 = enters airway/below vocal folds/no effort PENETRATION / ASPIRATION SCALE (SCORE): Thin liquid - 5 mL tsp.: 1 Thin liquids via cup: 1 Thin liquids via cup: 1 Thin liquids via cup: 1 Pudding via spoon: 1 Solid textures: 1 Thin liquids via straw: 2 Thin liquids via straw: 1 Thin liquids via straw: 2 - Oral Phase Labial Seal: No Labial Escape Tongue Control During Bolus Hold: Cohesive bolus between tongue to palatal seal Bolus Preparation/Mastication: Slow prolonged chewing/mashing with complete recollection Bolus Transport/Lingual Motion: Delayed initiation of tongue motion Oral Residue: Trace residue lining oral structures - Pharyngeal Phase Initiation of Pharyngeal Swallow: Bolus head in valleculae Soft Palate Elevation: No bolus between soft palate and pharyngeal wall Laryngeal Elevation: Partial superior movement thyroid cart/partial apprx aryt-epig petiole Anterior Hyoid Excursion: Partial anterior movement Epiglottic Movement: Complete inversion Laryngeal Vestibule Closure at Height of Swallow: Complete; no air/contrast in laryngeal vestibule Pharyngeal Stripping Wave: Present - complete Pharyngoesophageal Segment Opening: Minimal distension and minimal duration; marked obstruction of flow Tongue Base Retraction: Narrow column of contrast between tongue base & post. 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 He demonstrates competent bolus manipulation and sufficient albeit at times slowed bolus transportation again attributed to his reported oral discomfort and anticipated pharyngeal pain / discomfort (odynophagia; 4-5/10). His oral preparatory, oral transportation, pharyngeal phase, and esophageal phase physiology appeared otherwise unremarkable. He continues to report discomfort during deglutition which is visually noticeable, as he routinely was observed to be grimacing and bearing down as he would swallow; his description of his pain / discomfort is likely understated, as he rates his pain at 4-5/10 with 3/10 representing pain / discomfort where he would routinely control through medication, though often times states that it is a ?little scratchy? or ?uncomfortable?. His current swallow profile is rather preserved given the protracted duration of enteral feeding dependence that he has experienced, with mild pharyngeal phase dysmotility and mild deteriorations in pharyngeal valving noted, which suggests that his ill-defined odynophagia may be a larger impacting factor than he has reported. The physiological functioning of the oropharyngeal swallow as defined under fluoroscopy is sufficient to allow for a full return to a PO diet. He is still considered to be at a higher risk for continual changes and possible decline in swallow functioning / dysphagia severity post irradiation (late effects of radiation fibrosis can occur upwards of 40 years post treatment); therefore, I will continue to recommend continual monitoring and yearly follow up modified barium swallow studies for at least 5 years post irradiation following completion of the current treatment cycle. - Recommendations Comment: DIET TEXTURE RECOMMENDATIONS: regular ? soft textured (IDDSI: 6), thin liquid diet (IDDSI: 0) diet RECOMMENDED COMPENSATORY STRATEGIES: consider cutting tougher textures into bite sized pieces, reduced bolus volume / rate of ingestion, liquid chaser at reasonable intervals, seated upright at 90 degrees during PO intake, remain upright for 30-60 minutes post meal (GERD precaution), medications one at a time with purees; Enteral supplementation as needed during transition back to a full PO diet. Recommend Repeat Modified Barium Swallow: Yes Need for Skilled Speech Therapy Services: Yes Education Completed: 1. Described result of evaluation., 2. Pt understands evaluation & agrees with goals and treatment plan., 7. Pt requires further education on strategies & risks. - Image Count: [phone] - Status Active ST Patient: Not Active - Contact Information [facility] Speech Therapy:: Benjamin Lamb M.A., CCC-HANDBAG STITCHER, CBIS MBSImP Certified, LSVT Certified [facility] Speech-Language Pathology Department Email: [email or web address]
== END ==
PROVIDERS: PCP Family Medicine; Referring Provider Student in an Organized Health Care Education/Training Program; Visit Provider Student in an Organized Health Care Education/Training Program
DX: R13.12 Dysphagia, oropharyngeal phase (principal)
CPT/HCPCS: 74230; 92611

== ENCOUNTER 2020-08-23 10:00 | Outpatient (RCR) | payer OTHER, SELFPAY ==
[2020-04-04 09:58] VITALS: BMI 33.7
[2020-05-01 08:45] VITALS: BMI 31.5
[2020-05-02 09:26] VITALS: BMI 31.5
--- NOTE | 2020-05-03 10:00 | SOAP_ITS ---
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 He does report an overall 15 lb. weight loss over the past few months, with recently developing nausea that has impacted intake quantities, though he reports his appetite remains strong. He has underwent pre-irradiation percutaneous endoscopic gastrostomy (PEG) tube placement, and has recently initiated use. He repots mild dysgeusia (abnormal / unpleasant taste) with recent onset (~ 1 week) without hyposmia (reduced smell). He reports mild xerostomia (dry mouth) complicated by his baseline use of a CPAP that is slightly worse than his baseline level of xerostomia. He denies issues with diurnal sialorrhea (drooling during the daytime) He reports recent onset of mandibular pain / discomfort located at the left temporomandibular joint (~5/10 pain) with left sided otalgia occurring over the past week following recent dental extractions approximately 2 weeks prior with an associated restriction in mandibular range of motion which would suggest trismus, with his pain currently managed with oxycodone (10mg every 6 hours); he otherwise denies odynophagia (pain during swallow). He denies issues with reflux / heartburn, globus sensation, post prandial substernal discomfort, or feelings of bolus stasis; denies any suboptimal intake behaviors (tachyphagia, bolus bolting, or aerophagia). He denies any current or previous issues with aspiration related pulmonary complications, to include pneumonia, bronchitis, or unexplained asthma symptoms. He is a non-smoker (never smoked; no tobacco use of any kind). He appears cognitively intact; affect appears appropriate given the Patients current medical circumstances. He is experiencing mild fatigue. The Patient is fully ambulatory, with no difficulties with posture maintenance; appears well nourished. 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 currently undergoing chemoradiation (05/01/2020; Cisplatin), status post percutaneous endoscopic gastrostomy (PEG) tube placement; rheumatoid arthritis, obstructive sleep apnea (CPAP compliant), hypertension, status post hernia repair, anxiety PREVIOUS MODIFIED BARIUM SWALLOW STUDY: 04/13/2020 MBS revealed a pre-irradiation swallow function grossly within normal limits (SPS: 2; DIGEST: grade 0) RESULTS OF THE EVALUATION: The Patient presents with mild oropharyngeal dysphagia (SPS: 3; DCS: D0; DIGEST: grade 0) with new onset odynophagia and trismus like symptoms secondary to clinical stage I (cT2 cN1 M0) 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 ECOG PERFORMANCE STATUS SCORE: ECOG SCORE: 0 SCORE CRITERIA: asymptomatic SCORE DESCRIPTION: fully active, able to carry on all pre-disease activities without restriction. FUNCTIONAL AMBULATION CATEGORY (FAC): FAC SCORE: 5 (of 5) FAC DESCRIPTION: ambulator- independent; subject can ambulate independently on nonlevel and level surfaces, stairs, and inclines. SUPPLEMENTARY DYSPHAGIA ASSESSMENT RESULTS (SCALES / PROM): WORLD HEALTH ORGANIZATION (WHO) ORAL MUCOSITIS SCALE: WHO ORAL MUCOSITIS SCALE GRADE: grade 0 WHO ORAL MUCOSITIS SCALE GRADE DESCRIPTION: no objective findings, function irrelevant RTOG RADIATION MORBIDITY SCORING CRITERIA FOR XEROSTOMIA: ACUTE REACTIONS: grade I GRADE DESCRIPTION: mild mouth dryness; slightly thickened saliva; may have slightly altered taste, such as metallic taste SIALORRHEA SCORING SCALE (SSS): SSS SCORE: 1 (of 9) SSS DESCRIPTION: dry, never drools SCALE OF SUBJECTIVE TOTAL TASTE ACUITY (STTA): STTA GRADE: grade II STTA GRADE DESCRIPTION: moderate loss of taste acuity, and sometimes inconvenient in daily life; change in diet; noxious or unpleasant taste INTER-INCISOR DISTANCE (IID) AVERAGE IID: 2.5 cm IID GRADE: grade II IID GRADE DESCRIPTION: inter-incisor distance between 2.9 and 2 cm PERFORMANCE STATUS SCALE FOR HEAD & NECK CANCER PATIENTS (PSS-HN): NORMALCY OF DIET: 50 ? soft chewable foods PUBLIC EATIN ? no restriction of place, food, or company UNDERSTANDABILITY OF SPEECH: 100 ? always understandable PSS-HN TOTAL SCORE: 250/300 TOTAL DYSPHAGIA RISK SCORE (TDRS): T-CLASSIFICATION: 0 (T1 or T2) WEIGHT LOSS BASELINE: 5 (1-10%) CONCOMITANT CHEMORADIATION: 5 (yes) ACCELERATED RADIOTHERAPY: 0 (no) BILATERAL NECK IRRADIATION: 9 (yes) PRIMARY TUMOR SITE: 7 (oropharynx) TDRS RISK SCORE: 26 TDRS RISK CATEGORY: high risk (TDRS > 18) of grade >II swallowing dysfunction per RTOG/EORTC ORAL MOTOR / MODIFIED CRANIAL NERVE ASSESSMENT: TRIGEMINAL NERVE (CNV): appears grossly intact FACIAL NERVE (CNVII): appears grossly intact GLOSSOPHARYNGEAL NERVE (CNIX): appears grossly intact VAGUS NERVE (CNX): appears grossly intact HYPOGLOSSAL NERVE (CNXII): appears grossly intact MANDIBULAR FUNCTIONING: abnormal; left temporomandibular joint pain with reduced mandibular movement / opening suggesting trismus; average IID of 2.5 cm (grade II) DENTITION: natural upper / lower dentition with recent extractions; no obviating signs of dry socket. ORAL MUCOSA / GINGIVA: mild xerostomia. COUGH SUFFICIENCY: appropriate volitional cough intensity VOCAL QUALITY: no clinically significant vocal abnormalities observed CLINICAL ASSESSMENT OF SWALLOW FUNCTION (QUANTITATIVE): REPETITIVE SALIVA SWALLOWING TEST (RSST): RSST RESULT: pass RSST DESCRIPTION: able to elicit 2 dry swallows within 30 seconds. 1OZ WATER SWALLOWING TEST (1OZ WST): 1OZ WST RESULTS: normal ? 1 (of 5) 1OZ WST DESCRIPTION: single swallow without coughing during ingestion DRINKING EPISODES: none 3OZ WATER SWALLOWING TEST (3OZ WST): 3OZ WST RESULTS: normal DRINKING EPISODES: none DUNHAM 6 FACTORS: DYSPHONIA: 0 (negative) DYSARTHRIA: 0 (negative) ABNORMAL GAG RESPONSE: 0 (negative) ABNORMAL VOLITIONAL COUGH: 0 (negative) POST PRANDIAL COUGHIN (negative) POST PRANDIAL VOCAL CHANGES: 0 (negative) DUNHAM 6 FACTORS SCORE: 0 DUNHAM 6 FACTORS DESCRIPTION: normal to mild (0 to 1 clinical predictors) WHITEHEAD ASSESSMENT OF SWALLOWING ABILITY ? CANCER (MASA-C): MASA ASPIRATION SEVERITY SCORE: 185 MASA SEVERITY SCORE DESCRIPTION: mild impairment MASA-C DYSPHAGIA RISK RATING: probable; moderate evidence for disorder OBJECTIVE ASSESSMENT OF SWALLOW FUNCTION (QUANTITATIVE ? AGGREGATE): MODIFIED BARIUM SWALLOW IMPAIRMENT PROFILE (MBSImP) LABIAL SEAL: 0 (of 4) no labial escape TONGUE CONTROL: 0 (of 3) cohesive bolus BOLUS PREPARATION / MASTICATION: 0 (of 3) timely and efficient BOLUS TRANSPORT / LINGUAL MOTION: 0 (of 4) brisk tongue motion ORAL RESIDUE: 1 (of 4) trace residue lining oral structures INITIATION OF PHARYNGEAL SWALLOW: 0 (of 4) posterior angle of ramus SOFT PALATE ELEVATION: 0 (of 4) no bolus between soft palate & pharyngeal wall LARYNGEAL ELEVATION: 1 (of 3) partial superior movement / approximation ANTERIOR HYOID EXCURSION: 1 (of 2) partial movement EPIGLOTTIC MOVEMENT: 0 (of 2) complete inversion LARYNGEAL VESTIBULE CLOSURE: 0 (of 2) complete closure PHARYNGEAL STRIPPING WAVE: 0 (of 2) present / complete PE SEGMENT OPENIN (of 3) partial distension / duration / obstruction TONGUE BASE RETRACTION: 1 (of 4) trace column of contrast PHARYNGEAL RESIDUE: 1 (of 4) trace residue ESOPHAGEAL BOLUS CLEARANCE: could not view BOLUS RESIDUE SCALE (BRS): BRS SCORE: 1 (of 6) BRS SCORE DESCRIPTION: no residue CLINICAL ASSESSMENT OF SWALLOW FUNCTION (QUALITATIVE): ORAL PREPARATORY PHASE: slowed rate of mastication associated with intraoral pain following dental extractions with initial anterior munching quality and reported trismus; sufficient anterior oral containment during manipulation; preserved management of breathing / bolus formation without disrupted E ? S ? E pattern ORAL TRANSITIONAL PHASE: sufficient bolus transportation with no lingual discoordination (no tremor / undulations) noted upon digital palpation; no signs of bolus consolidation impairments with sufficient oral clearance; no signs or symptoms of premature posterior bolus loss PHARYNGEAL PHASE: appropriate hyolaryngeal excursion upon digital palpation; no obvious findings suggestive of pharyngeal phase delay / dyssynchrony; no subjective signs of pharyngeal dysmotility; no signs or symptoms of velopharyngeal insufficiency; no signs or symptoms of penetration / aspiration throughout trials. ESOPHAGEAL PHASE: esophageal phase appears unremarkable CLINICAL ASSESSMENT OF SWALLOW FUNCTION (SEVERITY GRADING): SWALLOWING PERFORMANCE SCALE (SPS): SPS SCORE: 3 (of 7) SPS SEVERITY: mild SPS SCORE DESCRIPTION: mild dysfunction in oral or pharyngeal stage; requires modified diet without need for therapeutic swallowing precautions. DYSPHAGIA CLASSIFICATION SCALE (DCS): DCS CLASSIFICATION: D0 DCS SEVERITY: normal DCS CLASSIFICATION CHARACTERISTICS: without stasis or food consistency restrictions DYNAMIC IMAGING GRADE OF SWALLOWING TOXICITY (DIGEST) DIGEST SAFETY GRADE: grade 0 SAFETY GRADE DEFINITION: PAS 1-2 DIGEST EFFICIENCY GRADE: grade 0 EFFICIENCY GRADE DEFINITION: < 10%; minimal to no residue SUMMARY DIGEST GRADE: grade 0 DIGEST SEVERITY LEVEL: minimal to no deficit RECOMMENDATIONS FOR INTERVENTION: The Patient requires intensive skilled speech-language intervention targeting diet texture management and training / implementation of recommended compensatory strategies; training and implementation of a Trismus based exercise program to promote improved (betty-irradiation) and sustained (post- irradiation) mandibular functioning; development, training and implementation of a home based prophylactic swallowing exercise program to promote the highest level of preserved post-irradiation swallow functioning; training and implementation of a home oral care protocol to reduce the effects of xerostomia and improve / maintain the integrity of the oral mucosa reducing the risk of aspiration related pulmonary complications; Patient / caregiver education regarding betty and post-irradiation dysphagia and associated symptomology; Patient and caregiver training targeting meal preparation; with recommendations for further diagnostic assessment of the swallow function under fluoroscopy via Modified Barium Swallow (MBS) study; with goal adjustment pending MBS completion. POST ASSESSMENT EDUCATION: The results and recommendations were discussed with the Patient and the Patients family immediately following completion of the assessment, with the Patient and the Patients family verbalizing understanding and agreement with all recommendations and education provided. We discussed the Patients elevated risk for continual changes and possible decline in swallow functioning / dysphagia severity throughout the chemoradiation intervention cycle; the Patient would benefit from continued monitoring across all domains throughout irradiation therapy including post irradiation. We discussed recommendations for prophylactic oropharyngeal strengthening / range of motion exercises to reduce the effects of betty and post radiation induced oropharyngeal dysphagia associated with head and neck cancer, with handouts provided outlining the recommended exercises; further / continual training is highly indicated to ensure proper execution and maintenance to the program. We discussed recommendations for mandibular range of motion stretching and exercise to reduce the effects of trismus and facilitate improved / maintained mandibular functioning, with handouts provided outlining the recommended exercises; further / continual training is indicated to ensure proper execution and maintenance to the program. I provided reinforcement of prior Patient and family education regarding the importance of oral care throughout the irradiation process and post- irradiation, with recommendations for an aggressive oral care program that includes pre-rinse use prior to water intake; routine oral care in the a.m., prior to oral intake, after oral intake, and prior to bed via toothbrush / swab / rinse; with frequent dental checkups post-irradiation. We discussed factors impacting effects of aspiration, to include: the quantity of aspiration, the depth of aspiration (trachea or distal airways), and the physical properties of the aspirate. We discussed the potential consequences of oropharyngeal dysphagia, to include pulmonary complications from tracheobronchial aspiration; potential for airway obstruction / asphyxiation; inadequate oral intake because of dysphagia; reduced liquid intake resulting in dehydration; reduced caloric intake resulting in unintentional and potentially medically complicating loss of weight; impairment in mental and physical condition to include depression and deterioration in the quality of life. higher risk for social isolation / anxiety / depression, increased disability rates, and lengthening of healing; complications in overall course of care with later discharge from acute admissions / increased length of hospitalizations, increased likelihood for discharge to care home, and overall worse rehabilitation outcomes; and increased risk for mortality / . We discussed benefits and risks associated with alternative means of nutrition, with increased access to caloric supplementation and reduce hydration deficits, in addition to possible reduction in stress associated with mealtimes, though nasogastric / gastrostomy feeding does not significantly reduce aspiration risk and may lead to reduced quality of life, disrupted sleep patterns, and stoma site infections. DIET TEXTURE RECOMMENDATIONS: Will recommend a regular ? soft textured (IDDSI: 6), thin liquid diet (IDDSI: 0) diet RECOMMENDED COMPENSATORY STRATEGIES: Use of supplementation via established alternate routes (percutaneous endoscopic gastrostomy tube) as needed throughout the chemoradiation cycle, reduced bolus volume / rate of ingestion, liquid chaser at reasonable intervals, consider cutting tougher textures into bite sized pieces, seated upright at 90 degrees during PO intake, remain upright for 30-60 minutes post meal (GERD precaution) FUNCTIONAL OUTCOMES: OUTCOME 1: the Patient will tolerate the least restrictive means of nutrition to facilitate adequate hydration / nutrition with optimum safety and efficiency of swallowing function during P.O. intake without overt signs and symptoms of aspiration. OUTCOME 2: the Patient will demonstrate and utilize recommended mandibular range of motion stretching and exercise within the Patients clinical and home based program to improve and maintain overall mandibular functioning and oral preparatory functioning reducing the effects of trismus, with minimal cueing and prompting provide by the clinician, across 2 out of 3 sessions. OUTCOME 3: the Patient will demonstrate and utilize recommended oropharyngeal range of motion exercise within the Patients clinical and home based program to improve and maintain overall oropharyngeal functioning and reducing the effects of post-irradiation dysphagia, with minimal cueing and prompting provide by the clinician, across 2 out of 3 sessions. OUTCOME 4: the Patient will participate in a home based oral care program established during intervention sessions to facilitate improved and maintained integrity of the oral mucosa throughout the irradiation process with complete independence. OUTCOME 5: the Patient will participate in continual Patient / Patient caregiver education regarding betty and post-irradiation dysphagia and associated symptomology to facilitate improved awareness and insight into the Patients current and anticipated dysphagia related complications and potential impact on the Patients overall medical stability. OUTCOME 6: the Patient will participate in a repeat Modified Barium Swallow (MBS) study to objectively assess the Patient?s oropharyngeal swallowing function (when clinically appropriate),to determine the least restrictive means of nutrition, to objectively assess the effectiveness of previously identified strategies / precautions, and to identify appropriate intervention approaches / strategies to implement during treatment sessions at the supervised level. OUTCOME 7: goal adjustment as needed post MBS Benjamin Lamb M.A., AMARI-MANAGEMENT AND BUDGET ANALYST, CBIS MBSImP Certified, LSVT Certified [facility] Speech-Language Pathology Department Email: [email or web address]
--- NOTE | 2020-08-16 13:30 | SP.MBSS_ITS ---
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 This study was recorded in the lateral view and images were sent to PACs for storage. Scoring was completed through each trial using the 8- point Penetration-Aspiration Scale (PAS) and summarized via the Modified Barium Swallow Impairment Profile (MBSImP) and the Bolus Residue Scale (BRS), with severity scoring through the Swallowing Performance Scale (SPS), the Dysphagia Classification Scale (DCS), and the Dynamic Imaging Grade of Swallowing Toxicity (DIGEST), and recommended diet textures through the International Dysphagia Diet Standardisation Initiative (IDDSI) RESULTS OF THE EVALUATION: The patient presents with mild oropharyngeal dysphagia (SPS: 3; DIGEST: grade 1) with transient shallow penetration of thin liquids secondary to clinical 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 PER TRIAL): PENETRATION / ASPIRATION SCALE (TORRES): 1 = does not enter airway 2 = enters airway/above vocal folds/ejected 3 = enters airway/above vocal folds/not ejected 4 = enters airway/contacts vocal folds/ejected 5 = enters airway/contacts vocal folds/not ejected 6 = enters airway/below vocal folds/ejected 7 = enters airway/below vocal folds/not ejected despite effort 8 = enters airway/below vocal folds/no effort PENETRATION / ASPIRATION SCALE (SCORE): Thin liquid - 5 mL tsp.: 1 Thin liquids via cup: 1 Thin liquids via cup: 1 Thin liquids via cup: 1 Pudding via spoon: 1 Solid textures: 1 Thin liquids via straw: 2 Thin liquids via straw: 1 Thin liquids via straw: 2 OBJECTIVE ASSESSMENT OF SWALLOW FUNCTION (QUANTITATIVE ? AGGREGATE): MODIFIED BARIUM SWALLOW IMPAIRMENT PROFILE (MBSImP) LABIAL SEAL: 0 (of 4) no labial escape TONGUE CONTROL: 0 (of 3) cohesive bolus BOLUS PREPARATION / MASTICATION: 1 (of 3) slow prolonged; complete recollection BOLUS TRANSPORT / LINGUAL MOTION: 1 (of 4) delayed initiation of motion ORAL RESIDUE: 1 (of 4) trace residue lining oral structures INITIATION OF PHARYNGEAL SWALLOW: 1 (of 4) valleculae SOFT PALATE ELEVATION: 0 (of 4) no bolus between soft palate & pharyngeal wall LARYNGEAL ELEVATION: 1 (of 3) partial superior movement / approximation ANTERIOR HYOID EXCURSION: 1 (of 2) partial movement EPIGLOTTIC MOVEMENT: 0 (of 2) complete inversion LARYNGEAL VESTIBULE CLOSURE: 0 (of 2) complete closure PHARYNGEAL STRIPPING WAVE: 0 (of 2) present / complete PE SEGMENT OPENIN (of 3) minimal distension / duration; marked obstruction TONGUE BASE RETRACTION: 2 (of 4) narrow column of contrast PHARYNGEAL RESIDUE: 2 (of 4) collection of residue ESOPHAGEAL BOLUS CLEARANCE: 0 (of 4) complete clearance; esophageal coating BOLUS RESIDUE SCALE (BRS): BRS SCORE: 2 (of 6) BRS SCORE DESCRIPTION: residue in valleculae OBJECTIVE ASSESSMENT OF SWALLOW FUNCTION (SEVERITY GRADING): SWALLOWING PERFORMANCE SCALE (SPS): SPS CLASSIFICATION: 3 (of 7) SPS SEVERITY: mild SPS CLASSIFICATION CHARACTERISTICS: mild dysfunction in oral or pharyngeal stage; requires modified diet without need for therapeutic swallowing precautions. DYSPHAGIA CLASSIFICATION SCALE (DCS): DCS CLASSIFICATION: D1 (mild) DCS CLASSIFICATION CHARACTERISTICS: mild stasis, without food consistency restriction DYNAMIC IMAGING GRADE OF SWALLOWING TOXICITY (DIGEST) DIGEST SAFETY GRADE: grade 0 SAFETY GRADE DEFINITION: PAS 1-2 DIGEST EFFICIENCY GRADE: grade 1 EFFICIENCY GRADE DEFINITION: 10-49%; less than half residue; any bolus type SUMMARY DIGEST GRADE: grade 1 DIGEST SEVERITY LEVEL: mild OBJECTIVE ASSESSMENT OF SWALLOW FUNCTION (QUALITATIVE): ORAL PREPARATORY PHASE: competent bolus manipulation albeit slowed due to his reported oral discomfort and anticipated pharyngeal pain / discomfort (odynophagia; 4-5/10); sufficient anterior oral containment during oral manipulation; preserved management of breathing / bolus formation without disrupted E ? S ? E pattern ORAL TRANSITIONAL PHASE: sufficient albeit at times slowed bolus transportation again attributed to his reported oral discomfort and anticipated pharyngeal pain / discomfort (odynophagia; 4-5/10);no lingual discoordination (no tremor / undulations) no bolus consolidation impairments with sufficient oral clearance; sufficient oral containment across textures with no presence of premature posterior bolus loss. PHARYNGEAL PHASE: overall appropriate pharyngeal phase synchrony; mild reduction in hyolaryngeal excursion and duration with sufficient / consistent laryngeal vestibule pressure generated to expel penetrated material; mild pharyngeal dysmotility with mild consolidation within the vallecula, with a noticeable restriction in pharyngoesophageal segment relaxation; no signs of velopharyngeal impairments; ESOPHAGEAL PHASE: no obvious esophageal phase abnormalities observed. CONTRIBUTING / COMPLICATING FACTORS AND NOTABLE FINDINGS: he continues to report discomfort during deglutition which is visually noticeable, as he routinely was observed to be grimacing and bearing down as he would swallow; his description of his pain / discomfort is likely understated, as he rates his pain at 4-5/10 with 3/10 representing pain / discomfort where he would routinely control through medication, though often times states that it is a ?little scratchy? or ?uncomfortable?. RESPONSE TO STRATEGIES: he does benefit from bolus rate / volume adjustments, and alteration between solids and liquids, DYSPHAGIA ASSOCIATED MEDICAL CONSIDERATIONS / INTERVENTION CONSIDERATIONS: His current swallow profile is rather preserved given the protracted duration of enteral feeding dependence that he has experienced, with mild pharyngeal phase dysmotility and mild deteriorations in pharyngeal valving noted, which suggests that his ill-defined odynophagia may be a larger impacting factor than he has reported. The physiological functioning of the oropharyngeal swallow as defined under fluoroscopy is sufficient to allow for a full return to a PO diet. He is still considered to be at a higher risk for continual changes and possible decline in swallow functioning / dysphagia severity post irradiation (late effects of radiation fibrosis can occur upwards of 40 years post treatment); therefore, I will continue to recommend continual monitoring and yearly follow up modified barium swallow studies for at least 5 years post irradiation following completion of the current treatment cycle. INTERVENTION RECOMMENDATIONS AND CONSIDERATIONS: The patient requires continued skilled speech-language intervention targetingdiet texture management and training / implementation of recommended compensatory strategies; training / implementation of recommended oropharyngeal strengthening exercises to prevent loss of oropharyngeal range of motion status post radiation intervention focusing on pharyngeal motility (lingual base, posterior pharyngeal contraction, pharyngoesophageal segment opening) and laryngeal valving; continued training and implementation of a Trismus based exercise program to promote improved and sustained post- irradiation mandibular functioning; continued training and implementation of a home oral care protocol to reduce the effects of xerostomia and improve / maintain the integrity of the oral mucosa reducing the risk of aspiration related pulmonary complications; continued patient / caregiver education regarding post-irradiation dysphagia and associated symptomology; and patient training targeting meal preparation during transition back to a full PO diet. POST ASSESSMENT EDUCATION: The results and recommendations were discussed with the patient immediately following MBS completion, with the patient verbalizing understanding and agreement with all recommendations and education provided. DIET TEXTURE RECOMMENDATIONS: Will recommend a regular ? soft textured (IDDSI: 6), thin liquid diet (IDDSI: 0) diet RECOMMENDED COMPENSATORY STRATEGIES: Consider cutting tougher textures into bite sized pieces, reduced bolus volume / rate of ingestion, liquid chaser at reasonable intervals, seated upright at 90 degrees during PO intake, remain upright for 30-60 minutes post meal (GERD precaution), medications one at a time with purees; Enteral supplementation as needed during transition back to a full PO diet. IMAGE COUNT: [id number] Benjamin Lamb M.A., AMARI-FIELD DIRECTOR, CBIS MBSImP Certified, LSVT Certified [facility] Speech-Language Pathology Department Email: [email or web address]
--- NOTE | 2020-11-29 12:01 | HP.SP.DC ---
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 The patient was seen for 11 visits for management of diet tolerance and education re: swallowing exercises and strategies. INTEGRATED PEST MANAGEMENT TECHNICIAN, Pooja, spoke with pt via phone call in November 2020 and pt resported [facility]. Will discharge the pt from outpatient speech therapy services at [facility] at this time.
== END 2020-08-23 19:00 | disposition home or self-care (01) ==
LOC: SP 10:00
PROVIDERS: PCP Family Medicine; Referring Provider Student in an Organized Health Care Education/Training Program; Visit Provider Student in an Organized Health Care Education/Training Program
DX: C01 Malignant neoplasm of base of tongue (principal)
CPT/HCPCS: 92526; 92610

== ENCOUNTER 2023-08-03 08:41 | Emergency (ER) | payer OTHER, SELFPAY ==
[2020-04-04 09:58] VITALS: BMI 33.7
[2023-08-03 08:42] VITALS: BP 123/82; PULSE 89; RESP 14; TEMP 36.6; O2SAT 98; BMI 29.7
--- NOTE | 2023-08-03 08:53 | EDS_ITS ---
HPI History of Present Illness Chief Complaint: General Illness Informant: patient Onset/Context/Timing Onset: Yesterday Narrative Narrative: Patient presents secondary to body aches. He states last evening he had a temperature of 99.8 and diffuse body aches. He called off work. He was given some Tylenol and slept throughout the night. Patient states he still has body aches today so he presented for evaluation. No cough or congestion. He states his vaccinations for COVID and influenza are up-to-date. He has a history of tongue cancer but is not currently on any kind of chemotherapy or treatment; not immunosuppressed at this time. [facility] Medical History Anxiety Dry mouth Dysphagia HTN (hypertension) Inguinal hernia Leukopenia PEG TUBE PLACEMENT PORT PLACEMENT Primary squamous cell carcinoma of base of tongue Rheumatoid arthritis Sleep apnea Thrombocytopenia Home Medications buspirone 5 mg tablet 20 mg PO TID ANXIETY 09/23/15 [History Last Taken 05/30/20] cholecalciferol (vitamin D3) 25 mcg (1,000 unit) tablet (Vitamin D3) 1,000 unit PO DAILY SUPPLEMENT 09/23/15 [History Last Taken 05/30/20] citalopram 20 mg tablet 20 mg PO DAILY DERPRESSION 09/23/15 [History Last Taken 05/30/20] pantoprazole 20 mg tablet,delayed release 20 mg PO BID GERD 09/23/15 [History Last Taken 05/30/20] lisinopril 20 mg tablet 20 mg PO DAILY BP 04/04/20 [History Last Taken 05/30/20] modafinil 200 mg tablet 200 mg PO DAILY PRN PRN KEEP HIM AWAKE 04/04/20 [History Last Taken Unknown] lidocaine-prilocaine 2.5 %-2.5 % topical cream 1 applicatio TP DAILY PRN PRN Not Specified 30 days #1 tube 04/26/20 [Rx Last Taken Unknown] hydroxychloroquine 200 mg tablet 200 mg PO BIDCM 09/14/20 [History Last Taken Unknown] multivitamin 5 ml PO DAILY 10/01/21 [History Last Taken Unknown] Allergy/AdvReac Type Severity Reaction Status Date / Time tramadol Allergy Intermediate Hives Verified 08/03/23 08:43 Family History Mother Diabetes Surgical History H/O hernia repair History of removal of Port-a-Cath Social History Smoking Status: Never smoker second hand exposure: No details: RARELY substance use type: does not use seatbelt use: always do you feel safe at home: Yes ROS ROS ED Constitutional Constitutional ED: Reports fever(s); Denies chills Eyes Eyes: Denies change in vision or discharge from eye(s) ENT ENT ED: Denies discharge from eye(s), rhinorrhea or sore throat Cardiovascular Cardiovascular: Denies chest pain Respiratory/Chest Respiratory/Chest: Denies cough or dyspnea Gastrointestinal Gastrointestinal: Denies abdominal pain, nausea or vomiting Genitourinary Genitourinary ED: Denies dysuria Musculoskeletal Musculoskeletal: Reports extremity pain and myalgias; Denies back pain Integumentary Denies Abrasions or rash Neurologic Neurologic: Denies headache(s) or weakness Psychiatric Psychiatric: Denies anxiety or depression Allergic/Immunologic Allergic/Immunologic ED: Denies lip swelling or urticaria EXAM Physical Exam Const Vital Signs: 08/03/23 08:42 08/03/23 09:52 Temperature 97.8 F Temperature Source Temporal Pulse Rate 89 Respiratory Rate 14 Respiratory Effort Normal Respiratory Pattern Normal Blood Pressure 123/82 H Blood Pressure Mean 95 Pulse Ox 98 Oxygen Delivery Method Room Air Positive well nourished and well developed General Appearance ED: well developed HEENT Reports moist mucous membranes Eyes EOMs intact bilaterally Chest Wall inspection of chest normal and palpation of chest normal Resp normal respiratory effort and clear to auscultation bilaterally Cardio regular rate and regular rhythm GI non-tender Palpation: soft Extremity normal to inspection Neuro oriented x3 and no sensory deficits noted Motor Exam: strength 5/5 throughout Psych mental status grossly normal Skin no rashes or lesions noted MDM MDM MDM Narrative Medical decision making narrative: Swab for COVID, influenza, RSV will be sent. Treatment and Re-Evaluation :: Swab for COVID, influenza, RSV is negative at this time. Patient was advised that if he continues to have symptoms he should be retested. If he remains free of fever he may return to work. Return instructions given. Discharge Plan Triage Chief Complaint: General Illness ED Provider: Justyna Henderson Dx/Rx/DC Orders Clinical Impression: Viral syndrome Instructions: ED Viral Syndrome (Adult) Prescriptions: No Action multivitamin Liquid 5 ml PO DAILY buspirone 5 MG tablet 20 mg PO TID pantoprazole 20 MG tablet 20 mg PO BID citalopram 20 MG tablet 20 mg PO DAILY cholecalciferol (vitamin D3) [Vitamin D3] 1,000 UNIT tablet 1,000 unit PO DAILY lisinopril 20 MG tablet 20 mg PO DAILY modafinil 200 MG tablet 200 mg PO DAILY PRN PRN (Reason: KEEP HIM AWAKE) lidocaine-prilocaine 30 GM cream 1 applicatio TP DAILY PRN PRN (Reason: Not Specified) 30 Days Qty: 1 2RF hydroxychloroquine 200 MG tablet 200 mg PO BIDCM Stand Alone Forms: ED Work / School Excuse Primary Care Provider: Luis Alberto Boo Referrals: Luis Alberto Boo MD [Primary Care Provider] - 1 Week if not improving Disposition Disposition: Home, Self Care
== END 2023-08-03 10:00 | disposition home or self-care (01) ==
PROVIDERS: Emergency Provider Emergency Medicine; PCP Family Medicine; Visit Provider Emergency Medicine
DX: B34.9 Viral infection, unspecified (principal); F41.9 Anxiety disorder, unspecified; R50.9 Fever, unspecified; I10 Essential (primary) hypertension; Z85.810 Personal history of malignant neoplasm of tongue; Z79.899 Other long term (current) drug therapy
CPT/HCPCS: 87631; 99282

== ENCOUNTER 2024-06-12 08:28 | Emergency (ER) | payer OTHER, SELFPAY ==
[2020-04-04 09:58] VITALS: BMI 33.7
[2024-06-12 08:28] VITALS: BP 142/81; PULSE 80; RESP 19; TEMP 36.4; O2SAT 100; BMI 29.1
[2024-06-12] MEDS: Cyclopentolate 1% 2 ML Bottle 1 DRP RIGHT EYE (10:36)
[2024-06-12] MEDS: AcetaZOLAMIDE 250 MG Tablet 500 MG PO (10:37)
[2024-06-12] MEDS: Tetracaine 0.5% Ophthalmic Bottle 1 DRP RIGHT EYE (10:37)
[2024-06-12] MEDS: Fluorescein 1 MG STRIP 1 STRIP RIGHT EYE (10:37)
== END 2024-06-12 11:01 | disposition home or self-care (01) ==
PROVIDERS: Emergency Provider Emergency Medicine; PCP Family Medicine; Visit Provider Emergency Medicine
DX: H57.10 Ocular pain, unspecified eye (principal); I10 Essential (primary) hypertension; F41.9 Anxiety disorder, unspecified; Z79.899 Other long term (current) drug therapy
CPT/HCPCS: 99283